=== PATIENT | male | born 1930 | race Caucasian/White ===

== ENCOUNTER 2019-04-03 16:12 | Inpatient (IN) | payer MEDICARE ==
--- NOTE | 2019-04-03 16:44 | ED ---
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 He states that he feels fine and does not know why he is here. In the room, pt was A&Ox2 (person, place). Pt is a level 5 caveat secondary to dementia. - History Of Current Complaint Chief Complaint: EDPsychosocial Time Seen by Provider: 04/03/19 16:16 Hx Obtained From: Patient, Medical Records, Other: - nursing staff Hx From Patient Unobtainable Due To: Dementia - Level 5 Caveat - Allergies/Home Medications Allergies/Adverse Reactions: Allergies Allergy/AdvReac Type Severity Reaction Status Date / Time No Known Allergies Allergy Verified 03/12/16 08:48 Home Medications: Home Medications Aspirin EC TAB* [Ecotrin EC Low Dose 81 MG*] 81 mg PO DAILY 04/03/19 [History Confirmed 04/03/19] PMH/Surg Hx/FS Hx/Imm Hx Endocrine/Hematology History: Reports: Hx Anticoagulant Therapy - plavix, Hx Diabetes Denies: Hx Blood Disorders, Hx Anemia Cardiovascular History: Reports: Hx Coronary Artery Disease Sensory History: Reports: Hx Contacts or Glasses Denies: Hx Hearing Problem Opthamlomology History: Reports: Hx Contacts or Glasses Neurological History: Reports: Hx Dementia - per transport staff - Surgical History Surgical History: Yes Surgery Procedure, Year, and Place: BYPASS X 4, RIGHT KNEE, CERVICAL FUSION Infectious Disease History: No Infectious Disease History: Denies: Traveled Outside the [place] in Last 30 Days - Family History Known Family History: Positive: Unknown - Pt is a level 5 caveat secondary to dementia - Social History Alcohol Use: None Hx Substance Use: No Substance Use Type: Reports: None Hx Tobacco Use: No Smoking Status (MU): Never Smoked Tobacco Review of Systems - ROS Summary Review of Systems Summary: Pt is a level 5 caveat secondary to dementia. Negative: Chest Pain All Other Systems Reviewed And Are Negative: No Physical Exam - Summary Physical Exam Summary: Appearance: The patient is well-nourished in no acute distress and in no acute pain. Skin: The skin is warm and dry, and skin color reflects adequate perfusion. HEENT: The head is normocephalic and atraumatic. The pupils are equal and reactive. The conjunctivae are clear and without drainage. Nares are patent and without drainage. Mouth reveals moist mucous membranes, and the throat is without erythema and exudate. The external ears are intact. The ear canals are patent and without drainage. The tympanic membranes are intact. Neck: The neck is supple with full range of motion and non-tender. There are no carotid bruits. There is no neck vein distension. Respiratory: Chest is non-tender. Lungs are clear to auscultation and breath sounds are symmetrical and equal. Cardiovascular: Heart is regular rate and rhythm. There is no murmur or rub auscultated. There is no peripheral edema and pulses are symmetrical and equal. Abdomen: The abdomen is soft and non-tender. There are normal bowel sounds heard in all four quadrants and there is no organomegaly palpated. Musculoskeletal: There is no back tenderness noted. Extremities are non-tender with full range of motion. There is good capillary refill. There is no peripheral edema or calf tenderness elicited. Neurological: Patient is alert and oriented to person and place. The patient has symmetrical motor strength in all four extremities. Cranial nerves are grossly intact. Deep tendon reflexes are symmetrical and equal in all four extremities. Psychiatric: The patient has an appropriate affect and does not exhibit any anxiety or depression. Triage Information Reviewed: Yes Vital Signs On Initial Exam: Initial Vitals Temp Pulse Resp BP Pulse Ox 98.6 F 64 14 147/77 100 04/03/19 16:20 04/03/19 16:20 04/03/19 16:20 04/03/19 16:20 04/03/19 16:20 Vital Signs Reviewed: Yes Completion Of Physical Exam Limited Due To: Dementia, Level 5 Procedures - Sedation Patient Received Moderate/Deep Sedation with Procedure: No Diagnostics - Vital Signs Vital Signs Temp Pulse Resp BP Pulse Ox 04/03/19 16:20 98.6 F 64 14 147/77 100 - Laboratory Result Diagrams: 04/03/19 16:56 04/03/19 16:56 Lab Statement: Any lab studies that have been ordered have been reviewed, and results considered in the medical decision making process. - Radiology cxr Radiology Interpretation Completed By: Radiologist Summary of Radiographic Findings: IMPRESSION: RIGHT APICAL PLEURAL THICKENING NEW FROM APRIL 13, 2015. RECOMMEND. CONSIDERATION OF FURTHER EVALUATION WITH CT OF THE CHEST IN THE NONACUTE SETTING. This report was reviewed by the ED physician. CXR Radiology Interpretation Completed By: Radiologist Summary of Radiographic Findings: IMPRESSION: RIGHT APICAL PLEURAL THICKENING NEW FROM APRIL 13, 2015. RECOMMEND. CONSIDERATION OF FURTHER EVALUATION WITH CT OF THE CHEST IN THE NONACUTE SETTING. This report was reviewed by the ED physician. - EKG 1702 Cardiac Rate: NL - 62bpm EKG Rhythm: Sinus Rhythm Summary of EKG Findings: Normal sinus rhythm at 62 bpm, normal ST, no ectopy, no STEMI. LBBB. This EKG was reviewed and interpreted by the ED physician. Complex Multi-Symp Course/Dx Course Of Treatment: Mr. Zurita has severe dementia and is unable to take care of himself. - Diagnoses Provider Diagnoses: Dementia - Physician Notifications Discussed Care Of Patient With: hospitalist services Time Discussed With Above Provider: 20:00 Instructed by Provider To: Other - Hospitalist services accepts the patient for admission. Discharge ED - Sign-Out/Discharge Documenting (check all that apply): Patient Departure - admit - Discharge Plan Condition: Stable Disposition: ADMITTED TO [facility] Referrals: Sriram Baer MD [Primary Care Provider] - - Billing Disposition and Condition Condition: STABLE Disposition: Admitted to [facility] - Attestation Statements Document Initiated by Twila: Yes Documenting Scribe: Lisa Chavez Provider For Whom Twila is Documenting (Include Credential): Dr. Ethan Singh MD Scribe Attestation: Lisa Gilliland scribed for Dr. Ethan Singh MD on 04/03/19 at 2056. Scribe Documentation Reviewed: Yes Provider Attestation: The documentation as recorded by the Lisa selby accurately reflects the service I personally performed and the decisions made by me, Dr. Ethan Singh MD Status of Scribe Document: Viewed
[2019-04-03 17:03] LABS: ABS Lymphocytes 0.5 10^3/ul (1.0-4.8); ABS Monocytes 0.3 10^3/ul (0-0.8); ABS Neutrophils 4.8 10^3/ul (1.5-7.7); Eosinophil % 0.4 %; Hematocrit 33 % (42-52); Hemoglobin 10.8 g/dL (14.0-18.0); Lymphocyte % 9.6 %; Mean Corpuscular HGB Conc 33 g/dL (31-36); Mean Corpuscular Hemoglobin 32 pg (27-31); Mean Corpuscular Volume 95 fL (80-94); Mean Platelet Volume 6.8 fL (7.4-10.4); Platelet Count 186 10^3/uL (150-450); Red Blood Count 3.43 10^6 /uL (4.18-5.48); Red Cell Distribution Width 14 % (10-15); White Blood Count 5.7 10^3/uL (3.5-10.8)
[2019-04-03 17:19] LABS: INR 1.04 (0.82-1.09)
[2019-04-03 17:21] LABS: ALT 9 U/L (7-52); AST 9 U/L (13-39); Albumin/Globulin Ratio 1.8 (1-3); Alkaline Phosphatase 85 U/L (34-104); BUN/Creatinine Ratio 24.7 (8-20); Blood Urea Nitrogen 48 mg/dL (6-24); C Reactive Protein < 1.00 mg/L (<8.01); CO2 Carbon Dioxide 29 mmol/L (22-32); Calcium 9.3 mg/dL (8.6-10.3); Chloride 101 mmol/L (101-111); EGFR African American 39.7 (>60); EGFR Non-African American 32.8 (>60); Globulin 2.2 g/dL (2-4); Glucose 234 mg/dL (70-100); Sodium 134 mmol/L (135-145); Total Protein 6.2 g/dL (6.4-8.9)
[2019-04-03 17:25] LABS: Anion Gap 4 mmol/L (2-11); Potassium 5.2 mmol/L (3.5-5.0)
--- OUTSIDE RECORDS SUMMARY | 2019-04-03 17:30 | XMS REPORT | Continuity of Care Document ---
:1930 External Reference #:[id number] Author Name Jaky Velazquez PA (transmitted by agent of provider Irwin Ernst) Address [address] [place] [address], [facility] [address] [place] [address] Care Team Providers Name Role Phone HCP given Care Team Information [place] Pilot Unavailable Casey Chambers MD - Orthopaedic Care Team Information [place] [phone] Surgery [place] [facility] - Geriatric Care Team Information [place] Medicine Problems Active Problems Provider Date Type 2 diabetes mellitus Sriram Baer M.D. Onset: 11/12/2009 Benign essential hypertension Sriram Baer M.D. Onset: 11/12/2009 Pure hypercholesterolemia Sriram Baer M.D. Onset: 11/12/2009 Coronary arteriosclerosis Sriram Baer M.D. Onset: 11/12/2009 Chronic renal failure Sriram Baer M.D. Onset: 11/12/2009 Gout Sriram Baer M.D. Onset: 11/12/2009 Carotid artery occlusion Sriram Baer M.D. Onset: 07/30/2010 Chronic kidney disease stage 3 Sriram Baer M.D. Onset: 07/31/2015 Alzheimer's disease Sriram Baer M.D. Onset: 12/02/2016 Social History Type Date Description Comments Sex Unknown Tobacco Use Reviewed: 01/17/14 Never Smoked Cigarettes Smoking Status Reviewed: 01/17/14 Never Smoked Cigarettes ETOH Use Denies alcohol use Allergies, Adverse Reactions, Alerts Description No Known Drug Allergies Medications Active Medications SIG Qnty Indications Ordering Date Provider Visiting Nursing medication G30.9 Irwin Ernst, 03/31/2019 Services management D.O. assistance Aspirin 1 by mouth every Unknown 07/23/[address] Brown HCL Take One Tablet By 180tabs F03.90 Sriram Baer, 2015 10mg Mouth Twice A Day M.D. Tablets For Memory G30.9 Glipizide ER Take One Tablet By 90tabs E11.21 Sriram Baer, 04/23/2015 2.5mg Tablets Mouth Every M.D. ER 24HR Morning For Blood Sugar Control Atorvastatin Calcium Take One Tablet By 90tabs E78.0 Sriram Baer, 40mg Mouth Every Day M.D. Tablets Clopidogrel Bisulfate Take One Tablet By 90tabs I25.10 Sriram Baer, 75mg Mouth Every Day M.D. Tablets H34.10 Allopurinol take 1 tablet by 90tabs M10.9 Sriram Baer, 09/09/2008 300mg Tablets mouth once daily to M.D. prevent gout attacks Medications Administered in Office Medication SIG Qnty Indications Ordering Provider Date injection, kenalog, 10 mg Sriram Baer M.D. 07/23/2009 Injection Immunizations CPT Code Status Date Vaccine Lot # [id number] Given 02/10/2019 Influenza Vaccine, Inactivated, Subunit, [id number] Adjuvanted, For Intrmus 59595 Given 01/10/2018 Influenza Vaccine, Inactivated, Subunit, [id number] Adjuvanted, For Intrmus 18880 Given 12/02/2016 Influenza Virus Vaccine, Quadrivalent, Split, [id number] Preservative Free 62136 Given 12/04/2015 Influenza Vaccine Split Virus Preservative Free Im [id number] Use (hi-dose) 94954 Given 12/31/2014 Prevnar 13 [id number] 91660 Given 12/31/2014 Influenza Vaccine Split Virus Preservative Free Im [id number] Use (hi-dose) 31529 Given 02/10/2012 Flu, Split Virus 3Yrs 42215 Given 12/31/2008 Flu, Split Virus 3Yrs 26561 Refused 01/10/2018 Shingrix Zoster (Shingles) Vaccine (HZV) Recomb,Subnit,Adjuvanted 61658 Refused 01/10/2018 Shingrix Zoster (Shingles) Vaccine (HZV) Recomb,Subnit,Adjuvanted 16285 Refused 07/24/2016 Adacel or Boostrix, TDaP 78932 Refused 12/25/2008 Zostavax Vital Signs Date Vital Result Comment 02/10/2019 1:24pm BP Systolic 114 mmHg BP Diastolic 60 mmHg Height 68 inches 5'8" Weight 143.00 lb BMI (Body Mass Index) 21.7 kg/m2 01/24/2019 11:56am BP Systolic 118 mmHg BP Diastolic 66 mmHg Weight 145.00 lb Results Test Acquired Date Facility Test Result H/L Range Note BMP W/Egfr 03/30/2019 [facility] Sodium 136 mmol/L Normal 135-145 [phone] Chloride 102 mmol/L Normal 101-111 Co2 Carbon Dioxide 29 mmol/L Normal 22-32 Glucose 193 mg/dL High 70-100 Blood Urea Nitrogen 47 mg/dL High 6-24 Creatinine 1.66 mg/dL High 0.67-1.17 BUN/Creatinine Ratio 28.3 High 8-20 Calcium 9.5 mg/dL Normal 8.6-10.3 Egfr Non- 39.3 >60 Egfr 47.5 >60 1 Potassium 5.4 mmol/L High 3.5-5.0 Anion Gap 5 mmol/L Normal 2-11 Urine Microalbumin 02/10/2019 [facility] Ur Microalbumin 61.9 mg/L Random [phone] (mg/L) Urine Creatinine 93.32 mg/dL Urine Microalbumin/Creatinine 66.3 High <31 CBC Auto Diff 02/10/2019 [facility] White Blood 5.8 10^3/uL Normal 3.5-10.8 [phone] Count Red Blood Count 3.39 10^6/uL Low 4.18-5.48 Hemoglobin 11.0 g/dL Low 14.0-18.0 Hematocrit 33 % Low 42-52 Mean Corpuscular Volume 97 fL High 80-94 Mean Corpuscular Hemoglobin 32 pg High 27-31 Mean Corpuscular HGB Conc 33 g/dL Normal 31-36 Red Cell Distribution Width 15 % Normal 10-15 Platelet Count 201 10^3/uL Normal 150-450 Mean Platelet Volume 8.0 fL Normal 7.4-10.4 Abs Neutrophils 4.3 10^3/uL Normal 1.5-7.7 Abs Lymphocytes 1.0 10^3/uL Normal 1.0-4.8 Abs Monocytes 0.4 10^3/uL Normal 0-0.8 Abs Eosinophils 0.1 10^3/uL Normal 0-0.6 Abs Basophils 0.1 10^3/uL Normal 0-0.2 Abs Nucleated RBC 0.0 10^3/uL Granulocyte % 73.3 % Lymphocyte % 17.2 % Monocyte % 6.9 % Eosinophil % 1.7 % Basophil % 0.9 % Nucleated Red Blood Cells % 0.0 Comp Metabolic Panel 02/10/2019 [facility] Sodium 142 mmol/L Normal 135-145 [phone] Chloride 106 mmol/L Normal 101-111 Co2 Carbon Dioxide 29 mmol/L Normal 22-32 Glucose 123 mg/dL High 70-100 Blood Urea Nitrogen 44 mg/dL High 6-24 Creatinine 1.69 mg/dL High 0.67-1.17 BUN/Creatinine Ratio 26.0 High 8-20 Calcium 10.0 mg/dL Normal 8.6-10.3 Total Protein 6.8 g/dL Normal 6.4-8.9 Albumin 4.4 g/dL Normal 3.2-5.2 Globulin 2.4 g/dL Normal 2-4 Albumin/Globulin Ratio 1.8 Normal 1-3 Total Bilirubin 0.60 mg/dL Normal 0.2-1.0 Alkaline Phosphatase 96 U/L Normal 34-104 Alt 12 U/L Normal 7-52 Ast 13 U/L Normal 13-39 Egfr Non- 38.5 >60 Egfr 46.6 >60 2 Potassium 5.5 mmol/L High 3.5-5.0 Anion Gap 7 mmol/L Normal 2-11 Laboratory test 02/10/2019 [facility] TSH (Thyroid 4.86 mcIU/mL Normal 0.34-5.60 finding [phone] Stim Horm) Urine Micro 02/10/2019 In House Ua WBC TNTC 3 Inhouse Ua RBC 3-5 Ua Epi 0-2 Ua Other many WBC clumps Ua Specific [place] 1.010 Ua Blood +2 Ua PH 6.5 Ua Protein +1 Ua Leukocytes +2 Laboratory test finding 01/24/2019 In House Hemoglobin A1c 5.8 1 Because ethnic data is not always readily available, this report includes an eGFR for both -Americans and non- Americans. The National Kidney Disease Education Program (NKDEP) does not endorse the use of the MDRD equation for patients that are not between the ages of 18 and 70, are , have extremes of body size, muscle mass, or nutritional status, or are non- or non-. According to the National Kidney Foundation, irrespective of diagnosis, the stage of the disease is based on the level of kidney function: Stage Description GFR(mL/min/1.73 m(2)) 1 Kidney damage with normal or decreased GFR 90 2 Kidney damage with mild decrease in GFR 60-89 3 Moderate decrease in GFR 30-59 4 Severe decrease in GFR 15-29 5 Kidney failure <15 (or dialysis) 2 Because ethnic data is not always readily available, this report includes an eGFR for both -Americans and non- Americans. The National Kidney Disease Education Program (NKDEP) does not endorse the use of the MDRD equation for patients that are not between the ages of 18 and 70, are , have extremes of body size, muscle mass, or nutritional status, or are non- or non-. According to the National Kidney Foundation, irrespective of diagnosis, the stage of the disease is based on the level of kidney function: Stage Description GFR(mL/min/1.73 m(2)) 1 Kidney damage with normal or decreased GFR 90 2 Kidney damage with mild decrease in GFR 60-89 3 Moderate decrease in GFR 30-59 4 Severe decrease in GFR 15-29 5 Kidney failure <15 (or dialysis) 3 Dr. 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 02/10/2019 G30.9 Alzheimer's disease, unspecified Sriram Baer M.D. 02/10/2019 N18.3 Chronic kidney disease, stage 3 (moderate) Sriram Baer M.D. 02/10/2019 R29.6 Repeated falls Sriram Baer M.D. 02/10/2019 I25.10 Atherosclerotic heart disease of [place] Sriram Baer M.D. coronary artery without angina pectoris 02/10/2019 I65.23 Occlusion and stenosis of bilateral carotid Sriram Baer M.D. arteries 02/10/2019 R63.4 Abnormal weight loss Sriram Baer M.D. 02/10/2019 Z23 Encounter for immunization Sriram Baer M.D. 02/10/2019 Z68.21 Body mass index (BMI) 21.0-21.9, adult Sriram Baer M.D. 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 at Main Legmdx3802/10/2019 - Sriram Baer M.D.E11.21 Type 2 diabetes mellitus with diabetic nephropathyFollow up:RTO 6 months w/ A1c For the small sore on your left 3rd toe, try covering it with efvpfjraL71 Essential (primary) tacukvuvyjppW81.9 Alzheimer's disease, unspecifiedComments:See triage to [employer] Test [employer] (requesting assistance w/ prison placement). I agree that pt is not safe in his home by himself and that consideration should be made for prison placement. Pt is opposed but frankly I do not think he is competent to make such a decision.N18.3 Chronic kidney disease, stage 3 ( moderate)R29.6 Repeated srzitG69.10 Atherosclerotic heart disease of [place] coronary artery without angina fndcdetmM06.23 Occlusion and stenosis of bilateral carotid bpwnncfaY30.4 Abnormal weight lossZ23 Encounter for immunizationComments:Encouraged flu vaccine wc was accepted in the end. VIS provided.Z68.21 Body mass index (BMI) 21.0-21.9, adult Functional Status Description No Information Available Mental Status Description No Information Available Referrals Description No Information Available
--- OUTSIDE RECORDS SUMMARY | 2019-04-03 17:30 | XMS REPORT | Continuity of Care Document ---
:1930 External Reference #:[id number] Author Name Sriram Baer M.D. Address [address] [facility] [address] [place] [address] Care Team Providers Name Role Phone HCP given Care Team Information Public Transportation Inspector Unavailable Casey Chambers MD - Orthopaedic Care Team Information Public Transportation Inspector Surgery [place] [facility] - Geriatric Care Team Information Public Transportation Inspector Medicine Problems Active Problems Provider Date Type [...] Medications Active Medications SIG Qnty Indications Ordering Provider Date Aspirin 1 by mouth every Unknown 07/23/[address] day Memantine HCL Take 1 Tablet By 180tabs F03.90 Sriram Baer, 03/06/2016 10mg Mouth Twice A M.D. Tablets Day For Memory G30.9 Glipizide ER take 1 tablet by 90tabs E11.21 Sriram Baer, 04/23/2015 2.5mg Tablets mouth every M.D. ER 24HR morning for blood sugar control Atorvastatin Calcium take 1 tablet by 90tabs E78.0 Sriram Baer, 2014 40mg mouth once daily M.D. Tablets Clopidogrel Bisulfate take 1 tablet by 90tabs I25.10 Sriram Baer, 03/2011 75mg mouth once daily M.D. Tablets H34.10 Allopurinol take 1 tablet by 90tabs M10.9 Sriram Baer, 09/09/2008 300mg Tablets mouth once daily to M.D. prevent gout attacks Medications Administered in Office Medication SIG Qnty Indications Ordering Provider Date injection, kenalog, 10 mg Sriram Baer M.D. 07/23/2009 Injection Immunizations CPT Code Status Date Vaccine Lot # [id number] Given 02/10/2019 Influenza Vaccine, Inactivated, Subunit, [id number] Adjuvanted, For Intrmus 58873 Given 01/10/2018 Influenza Vaccine, Inactivated, Subunit, [id number] Adjuvanted, For [facility] 35716 Given 12/02/2016 Influenza Virus Vaccine, Quadrivalent, Split, [id number] Preservative Free 94937 Given 12/04/2015 Influenza Vaccine Split Virus Preservative Free Im [id number] Use 77062 Given 12/31/2014 Prevnar 13 [id number] 19025 Given 12/31/2014 Influenza Vaccine Split Virus Preservative Free Im [id number] Use 93655 Given 02/10/2012 Flu, Split Virus 3Yrs 54795 Given 12/31/2008 Flu, Split Virus 3Yrs 28817 Refused 01/10/2018 Shingrix Zoster (Shingles) Vaccine (HZV) Recomb,Subnit,Adjuvanted 78814 Refused 01/10/2018 Shingrix Zoster (Shingles) Vaccine (HZV) Recomb,Subnit,Adjuvanted 95573 Refused 07/24/2016 Adacel or Boostrix, TDaP 64239 Refused 12/25/2008 Zostavax Vital Signs Date Vital Result Comment 02/10/2019 1:24pm BP Systolic 114 mmHg BP Diastolic 60 mmHg Height 68 inches 5'8" Weight 143.00 lb BMI (Body Mass Index) 21.7 kg/m2 01/24/2019 11:56am BP Systolic 118 mmHg BP Diastolic 66 mmHg Weight 145.00 lb Results Test Acquired Date Facility Test Result H/L Range Note CBC Auto 02/10/2019 [facility] White Blood 5.8 10^3/uL Normal 3.5- 10.8 Diff [phone] Count Red Blood Count 3.39 10^6/uL Low [...] % Nucleated Red Blood Cells % 0.0 Laboratory test 02/10/2019 [facility] TSH (Thyroid Stim <pending> finding [phone] [facility]) Laboratory test 01/24/2019 In House Hemoglobin A1c 5.8 finding Procedures Date Code Description Status 02/10/2019 [id number] Diabetic Foot Exam Completed 08/19/2017 [id number] Diabetic Retinal Eye Exam Completed Medical Devices Description No Information Available Encounters Type Date Location Provider Dx Diagnosis Office Visit 02/10/2019 Main Office Sriram Baer, 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 02/10/2019 I25.10 Atherosclerotic heart disease of [place] Sriram Baer M.D. coronary artery without angina [...] am - Sriram Baer M.D. at Main Vodxcj3908/05/2017 - Jaky Velazquez, PAR29.6 Repeated fallsComments:Had a long discussion with patient about fall safety and the importance of fall prevention. I strongly encouraged him to use a walker when ambulating to prevent falls, and to consider getting Life Alert (or similar). Pt was very resistant to both ideas, didn't feel he needed them despite frequent falls and living alone. He thinks he already has a walker in storage--told me he would get it out and "try it". Pt has f/u appt scheduled w Dr. Baer on 09/01. Functional Status Description No Information Available Mental Status Description No Information Available Referrals Description No Information Available
[2019-04-03] MEDS ORDERED: Acetaminophen TAB* 325 MG PO PRN (20:04)
[2019-04-03] MEDS: Heparin VIAL(*) 5000 UNITS/ML VIAL (FIVE THOUSAND) SUBCUT SCH (23:12)
[2019-04-03] MEDS: Memantine TAB* 10 MG PO SCH (23:12)
--- NOTE | 2019-04-03 23:22 | HP ---
CC: Dr. Baer * HISTORY AND PHYSICAL: DATE OF ADMISSION: 04/03/19 PROVIDER: Maggie Powell NP PRIMARY CARE PROVIDER: Dr. Baer. ATTENDING PHYSICIAN WHILE IN THE HOSPITAL: Dr. Claudia Wang * (dictated by Maggie Powell NP). CHIEF COMPLAINT: Confusion. HISTORY OF PRESENT ILLNESS: History of present illness was obtained from his family day care provider as the patient does have underlying dementia with moderate confusion. Per Doug, his family day care provider, the patient has been more confused and not taking his meds at home. He has not been eating. The patient's friend who has been caring for the patient for the past 20 years at [facility] has recently been diagnosed with metastatic cancer and placed in the hospice residence. Prior to that, she was his healthcare proxy and took care of all of his financial requirements as well as making meals and caring for him during the day. Since her admission to the hospital and then to hospice residence, the patient has had been more confused and not taking his meds at home. Other neighbors at [facility] have been assisting, but the patient has been noted to going into other apartments, and due to his increased confusion and not able to care for himself, he was brought to the emergency room for further evaluation and likely placement. While in the emergency room, the patient had routine lab work drawn. He was found to have BUN and creatinine of 48 and 1.94, which is close to his baseline since 2014. The patient has no other symptoms. He denies any fever, chills. Denies any chest pain or shortness of breath. No cough, congestion, or hemoptysis. He denies any nausea, vomiting, diarrhea, or abdominal pain. He denies any difficulty hearing, pain with urination. He denies any weakness, difficulty swallowing. Due to the patient's increased confusion and inability to care for self, Hospital Medicine was asked to see and evaluate him for admission. PAST MEDICAL HISTORY: Past medical history was obtained from his outpatient case manager and old records. The patient has a history of: 1. Type 2 diabetes. 2. Hypertension. 3. Hyperlipidemia. 4. Coronary artery disease. 5. Chronic renal disease. 6. Gout. 7. Carotid artery occlusion. 8. Alzheimer disease. 9. History of recurrent UTIs. 10. History of colon cancer in 1979. 11. History of gastric cancer in 1999. 12. History of a CVA. 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 PAST SURGICAL HISTORY: 1. Four-vessel CABG. 2. Bowel resection. MEDICATIONS: Home medications were obtained from his family day care provider: 1. Allopurinol 300 mg p.o. daily. 2. Aspirin 81 mg p.o. daily. 3. Atorvastatin 40 mg p.o. daily. 4. Clopidogrel 75 mg p.o. daily. 5. Glipizide ER 2.5 mg p.o. daily. 6. Memantine HCl 10 mg p.o. b.i.d. ALLERGIES: No known drug allergies. FAMILY HISTORY: Family history was obtained from old records as the patient reports no family history. Father with diabetes. Brother with diabetes. No other reported history in the medical records. SOCIAL HISTORY: The patient denies any tobacco, alcohol, or illicit drug use. He is . He lives at [facility]. He is a full code per the patient. He is a retired superintendent mechanical. REVIEW OF SYSTEMS: A 14-point review of systems was completed. All pertinent positives are as mentioned in the HPI. PHYSICAL EXAMINATION GENERAL: At this time, Mr. Zurita is an 88-year-old male. He is alert. He is oriented to self. He is confused to situation and time. VITAL SIGNS: Blood pressure 132/70, heart rate 62, respirations 18, O2 saturation 100%, temperature was 98.6. HEENT: Head is atraumatic, normocephalic. Eyes: EOMs are intact. Sclerae are anicteric and not pale. Oral mucosa is moist. NECK: Supple. LUNGS: Clear to auscultation bilaterally. No wheezes, rales, or rhonchi. CARDIAC: S1 and S2. Regular rate and rhythm. No rubs or gallops. ABDOMEN: Soft and nontender. Bowel sounds are present x4. EXTREMITIES: He is able to move all 4 extremities. There is no clubbing or cyanosis. Pedal pulses are +2 bilaterally. NEUROLOGIC: He is awake, alert, and oriented to self, confused to time and situation. He has no gross focal deficits. His speech is clear. SKIN: Intact. DIAGNOSTIC STUDIES/LAB DATA: WBCs are 5.7, RBCs 3.43, hemoglobin 10.8, hematocrit 33, platelet count 186. INR 1.04. Sodium 134, potassium 5.2, chloride 101, carbon dioxide was 29, anion gap is 4, BUN 48, creatinine 1.94, glucose was 234, calcium 9.3. ASTs were 9, ALTs were 9, alkaline phosphatase was 85. C-reactive protein was less than 1. BNP was 118. Urine is currently pending. He had a chest x-ray, radiologist's impression: Right apical pleural thickening , new from March 2015. Recommend further evaluation with CT of the chest in a nonacute setting. He had an electrocardiogram which shows sinus rhythm at a rate of 62. He does have T-wave inversions in V5, V6, and left bundle-branch block, which is seen on prior EKGs. ASSESSMENT AND PLAN: Mr. Zurita is an 88-year-old male with a past medical history significant for coronary artery disease, hypertension, hyperlipidemia, type 2 diabetes, chronic kidney disease, gout, carotid artery occlusion, and Alzheimer disease who presented to the emergency room with confusion and inability to care for self at home. He will be admitted under observation for: 1. Confusion. I suspect his underlying confusion is related to his underlying Alzheimer's. He could have an underlying urinary tract infection, though the patient does deny any urinary frequency, urgency, or pain with urination. Urine is currently pending. I suspect his underlying confusion at this time is related to progression of his Alzheimer disease. I will get Social Work involved as the patient will likely need fci placement at discharge. 2. Coronary artery disease. The patient should continue on clopidogrel, atorvastatin, and aspirin as previously prescribed. 3. Type 2 diabetes. We will continue on glipizide 2.5 mg p.o. every day. 4. Underlying Alzheimer's. We will continue memantine 10 mg twice daily. 5. History of gout. The patient will continue on allopurinol 300 mg p.o. daily. 6. FEN. He can have a regular diet. 7. Code status. He is a full code. 8. DVT prophylaxis. I will place him on heparin subcu. TIME SPENT: Time spent on this admission was 60 minutes, greater than half that time was spent at the bedside reviewing the events leading thus far to his hospitalization, performing physical exam, and reviewing my plan of care. I have discussed this with my attending, Dr. Claudia Wang; she is in agreement with my plan. MAGGIE POWELL, BELL ATTENDANT [id number]/[facility] #: [id number] FOUR WINDS PSYCHIATRIC HOSPITALFransisco
[2019-04-04 00:32] LABS: Urine Appearance Clear; Urine Bilirubin Negative (Negative); Urine Blood 1+ (Negative); Urine Color Yellow; Urine Glucose 2+(150 mg/dL) (Negative); Urine Ketones Negative (Negative); Urine Nitrite Negative (Negative); Urine Protein Negative (Negative); Urine Specific Gravity 1.015 (1.010-1.030); Urine Urobilinogen Negative (Negative)
[2019-04-04 00:46] LABS: Urine Bacteria 1+ (Absent); Urine Red Blood Cell Trace(0-2/hpf) (Absent); Urine Squamous Epithelial Cell Present (Absent); Urine White Blood Cell Trace(0-5/hpf) (Absent)
[2019-04-04 07:29] LABS: ABS Eosinophils 0.1 10^3/ul (0-0.6); ABS Monocytes 0.4 10^3/ul (0-0.8); Eosinophil % 1.1 %; Hematocrit 31 % (42-52); Lymphocyte % 17.9 %; Mean Corpuscular HGB Conc 35 g/dL (31-36); Mean Corpuscular Hemoglobin 33 pg (27-31); Mean Corpuscular Volume 95 fL (80-94); Mean Platelet Volume 7.3 fL (7.4-10.4); Platelet Count 197 10^3/uL (150-450); Red Blood Count 3.29 10^6 /uL (4.18-5.48); Red Cell Distribution Width 14 % (10-15); White Blood Count 5.5 10^3/uL (3.5-10.8)
[2019-04-04] MEDS: Heparin VIAL(*) 5000 UNITS/ML VIAL (FIVE THOUSAND) SUBCUT SCH ×3 (07:37→22:01)
[2019-04-04] MEDS: Memantine TAB* 10 MG PO SCH ×2 (07:37→22:00)
[2019-04-04] MEDS: Allopurinol TAB* 300 MG PO SCH (07:38)
[2019-04-04] MEDS: Aspirin EC TAB* 81 MG TAB.EC PO SCH (07:38)
[2019-04-04] MEDS: glipiZIDE TAB.XL* 2.5 MG PO SCH (07:38)
[2019-04-04] MEDS: Atorvastatin* 40 MG TAB PO SCH (07:38)
[2019-04-04] MEDS: Clopidogrel TAB* 75 MG PO SCH (07:38)
[2019-04-04 07:40] LABS: BUN/Creatinine Ratio 25.4 (8-20); Calcium 9.1 mg/dL (8.6-10.3); EGFR African American 45.3 (>60); EGFR Non-African American 37.5 (>60); Potassium 4.5 mmol/L (3.5-5.0)
--- NOTE | 2019-04-04 10:20 | PN ---
Subjective Date of Service: 04/04/19 Interval History: Mr. Zurita is feeling fine this morning. He offers no complaints. Finishing breakfast on my exam. He knows he is in the hospital, but is not sure why. Denies CP, SOB, N/V. Good appetite. No concerns from nursing. Family History: Unchanged from Admission Social History: Unchanged from Admission Past Medical History: Unchanged from Admission Objective Active Medications: Acetaminophen (Tylenol Tab*) 650 mg PO Q4H PRN MILD PAIN or TEMP > 100.4 Allopurinol (Zyloprim Tab*) 300 mg PO DAILY [facility] Aspirin (Aspirin Ec Tab*) 81 mg PO DAILY [facility] Atorvastatin Calcium (Lipitor*) 40 mg PO DAILY [facility] Clopidogrel Bisulfate (Plavix Tab*) 75 mg PO DAILY [facility] Glipizide (Glucotrol Xl*) 2.5 mg PO QAM [facility] Heparin Sodium (Porcine) (Heparin Vial(*)) 5,000 units SUBCUT Q8HR [facility] Memantine (Namenda Tab*) 10 mg PO BID [facility] Vital Signs - 8 hr 04/04/19 04/04/19 03:10 07:32 Temperature 98.0 F 98.4 F Pulse Rate 64 81 Respiratory 19 16 Rate Blood Pressure 120/66 105/50 (mmHg) O2 Sat by Pulse 100 98 Oximetry Oxygen Devices in Use Now: None Appearance: Elderly male sitting in bed in NAD Ears/Nose/Mouth/Throat: Mucous Membranes Moist Neck: NL Appearance and Movements; NL JVP, Trachea Midline Respiratory: Symmetrical Chest Expansion and Respiratory Effort, Clear to Auscultation Cardiovascular: NL Sounds; No Murmurs; No JVD Extremities: No Edema Neurological: - - Oriented to self and place Nutrition: Taking PO's Result Diagrams: 04/04/19 07:06 04/04/19 07:06 Assess/Plan/Problems-Billing Assessment: Mr. Zurita is an 88 yo M with PMH of DM2, HTN, HLD, gout, CKD, CAD, Alzheimer' s, carotid artery occlusion, CVA, R eye blindness d/t emboli; who presented to the ED with increasing confusion, likely r/t advancing dementia. - Patient Problems (1) Alzheimer's dementia Code(s): G30.9 - ALZHEIMER'S DISEASE, UNSPECIFIED; F02.80 - DEMENTIA IN OTH DISEASES CLASSD ELSWHR W/O BEHAVRL DISTURB Comment: - Patient's primary caregiver recently hospitalized and now on hospice; timing coincides with decline in mental status, so suspect AMS on admission was d/t advancing dementia - Social Work consulting for placement - Continue Namenda (2) Diabetes mellitus Code(s): E11.9 - TYPE 2 DIABETES MELLITUS WITHOUT COMPLICATIONS Comment: - BG >200 - Continue glipizide; start Lantus (3) CAD (coronary artery disease) Code(s): I25.10 - ATHSCL HEART DISEASE OF [place] CORONARY ARTERY W/O ANG PCTRS Comment: - Continue aspirin, atovastatin, Plavix (4) History of gout Code(s): Z87.39 - PERSONAL HISTORY OF DISEASES OF THE [place] SYS AND [place]N [place] Comment: - Continue allopurinol (5) CKD (chronic kidney disease), stage III Code(s): N18.3 - CHRONIC KIDNEY DISEASE, STAGE 3 (MODERATE) Comment: - Creatinine at baseline (6) DVT prophylaxis Code(s): Z29.9 - ENCOUNTER FOR PROPHYLACTIC MEASURES, UNSPECIFIED Comment: - Heparin SQ (7) Full code status Code(s): Z78.9 - OTHER SPECIFIED HEALTH STATUS Comment: Status and Disposition: Retirement care pending placement. Attending: Joseph Moreno
[2019-04-04] MEDS: Insulin GLARGINE(*) 1 UNITS UNIT SUBCUT SCH (10:58)
[2019-04-05] MEDS: Heparin VIAL(*) 5000 UNITS/ML VIAL (FIVE THOUSAND) SUBCUT SCH ×3 (04:04→20:01)
[2019-04-05] MEDS: Allopurinol TAB* 300 MG PO SCH (08:01)
[2019-04-05] MEDS: Clopidogrel TAB* 75 MG PO SCH (08:01)
[2019-04-05] MEDS: Atorvastatin* 40 MG TAB PO SCH (08:01)
[2019-04-05] MEDS: Aspirin EC TAB* 81 MG TAB.EC PO SCH (08:01)
[2019-04-05] MEDS: Memantine TAB* 10 MG PO SCH ×2 (08:02→20:01)
[2019-04-05] MEDS: glipiZIDE TAB.XL* 2.5 MG PO SCH (08:03)
[2019-04-05] MEDS: Insulin GLARGINE(*) 1 UNITS UNIT SUBCUT SCH (11:04)
--- NOTE | 2019-04-05 13:54 | PN ---
Subjective Date of Service: 04/05/19 Interval History: Mr. Zurita is feeling well today. He offers no complaints. Seen sitting in bed watching TV. Denies SOB, N/V. Good appetite. No concerns from nursing. Family History: Unchanged from Admission Social History: Unchanged from Admission Past Medical History: Unchanged from Admission Objective Active Medications: Acetaminophen (Tylenol Tab*) 650 mg PO Q4H PRN MILD PAIN or TEMP > 100.4 Allopurinol (Zyloprim Tab*) 300 mg PO DAILY [facility] Aspirin (Aspirin Ec Tab*) 81 mg PO DAILY [facility] Atorvastatin Calcium (Lipitor*) 40 mg PO DAILY [facility] Clopidogrel Bisulfate (Plavix Tab*) 75 mg PO DAILY [facility] Glipizide (Glucotrol Xl*) 2.5 mg PO QAM [facility] Heparin Sodium (Porcine) (Heparin Vial(*)) 5,000 units SUBCUT Q8HR [facility] Insulin Glargine (Lantus(*)) 5 units SUBCUT Q24H [facility] Memantine (Namenda Tab*) 10 mg PO BID [facility] Vital Signs - 8 hr 04/05/19 04/05/19 04/05/19 07:27 08:00 11:10 Temperature 97.6 F 97.4 F Pulse Rate 76 72 Respiratory 16 16 16 Rate Blood Pressure 108/57 122/52 (mmHg) O2 Sat by Pulse 96 100 Oximetry Oxygen Devices in Use Now: None Appearance: Elderly male sitting in bed in NAD Ears/Nose/Mouth/Throat: Mucous Membranes Moist Neck: NL Appearance and Movements; NL JVP, Trachea Midline Respiratory: Symmetrical Chest Expansion and Respiratory Effort, Clear to Auscultation Cardiovascular: NL Sounds; No Murmurs; No JVD, RRR Abdominal: NL Sounds; No Tenderness; No Distention Extremities: No Edema Neurological: - - Oriented to self and place Nutrition: Taking PO's Result Diagrams: 04/04/19 07:06 04/04/19 07:06 Assess/Plan/Problems-Billing Assessment: Mr. Zurita is an 88 yo M with PMH of DM2, HTN, HLD, gout, CKD, CAD, Alzheimer' s, carotid artery occlusion, CVA, R eye blindness d/t emboli; who presented to the ED with increasing confusion, likely r/t advancing dementia. - Patient Problems (1) Alzheimer's dementia Code(s): G30.9 - ALZHEIMER'S DISEASE, UNSPECIFIED; F02.80 - DEMENTIA IN OTH DISEASES CLASSD ELSWHR W/O BEHAVRL DISTURB Comment: - Patient's primary caregiver recently hospitalized and now on hospice; timing coincides with decline in mental status, so suspect AMS on admission was d/t advancing dementia - Social Work consulting for placement - Continue Namenda (2) Diabetes mellitus Code(s): E11.9 - TYPE 2 DIABETES MELLITUS WITHOUT COMPLICATIONS Comment: - BG >200 - Continue glipizide; increase Lantus (3) CAD (coronary artery disease) Code(s): I25.10 - ATHSCL HEART DISEASE OF [place] CORONARY ARTERY W/O ANG PCTRS Comment: - Continue aspirin, atovastatin, Plavix (4) History of gout Code(s): Z87.39 - PERSONAL HISTORY OF DISEASES OF THE MS SYS AND CONN TISS Comment: - Continue allopurinol (5) CKD (chronic kidney disease), stage III Code(s): N18.3 - CHRONIC KIDNEY DISEASE, STAGE 3 (MODERATE) Comment: - Creatinine at baseline (6) DVT prophylaxis Code(s): Z29.9 - ENCOUNTER FOR PROPHYLACTIC MEASURES, UNSPECIFIED Comment: - Heparin SQ (7) Full code status Code(s): Z78.9 - OTHER SPECIFIED HEALTH STATUS Comment: Status and Disposition: Inpatient pending placement. Attending: Arlet Riojas
[2019-04-06] MEDS: Heparin VIAL(*) 5000 UNITS/ML VIAL (FIVE THOUSAND) SUBCUT SCH ×3 (07:29→21:06)
[2019-04-06] MEDS: glipiZIDE TAB.XL* 2.5 MG PO SCH (08:36)
[2019-04-06] MEDS: Clopidogrel TAB* 75 MG PO SCH (08:36)
[2019-04-06] MEDS: Atorvastatin* 40 MG TAB PO SCH (08:36)
[2019-04-06] MEDS: Aspirin EC TAB* 81 MG TAB.EC PO SCH (08:36)
[2019-04-06] MEDS: Memantine TAB* 10 MG PO SCH ×2 (08:37→21:04)
[2019-04-06] MEDS: Allopurinol TAB* 300 MG PO SCH (08:37)
[2019-04-06] MEDS: Insulin GLARGINE(*) 1 UNITS UNIT SUBCUT SCH (10:46)
--- NOTE | 2019-04-06 13:43 | PN ---
Subjective Date of Service: 04/06/19 Interval History: Mr. Zurita is feeling fine today. He slept well overnight. Offers no complaints this morning. On exam this morning, he did not think he had eaten breakfast (he had). Denies CP, SOB, N/V. He has been up ambulating in the room. No concerns from nursing. Family History: Unchanged from Admission Social History: Unchanged from Admission Past Medical History: Unchanged from Admission Objective Active Medications: Acetaminophen (Tylenol Tab*) 650 mg PO Q4H PRN MILD PAIN or TEMP > 100.4 Allopurinol (Zyloprim Tab*) 300 mg PO DAILY [facility] Aspirin (Aspirin Ec Tab*) 81 mg PO DAILY [facility] Atorvastatin Calcium (Lipitor*) 40 mg PO DAILY [facility] Clopidogrel Bisulfate (Plavix Tab*) 75 mg PO DAILY [facility] Glipizide (Glucotrol Xl*) 2.5 mg PO QAM [facility] Heparin Sodium (Porcine) (Heparin Vial(*)) 5,000 units SUBCUT Q8HR [facility] Insulin Glargine (Lantus(*)) 11 units SUBCUT Q24H [facility] Memantine (Namenda Tab*) 10 mg PO BID [facility] Vital Signs - 8 hr 04/06/19 04/06/19 04/06/19 07:20 08:30 10:41 Temperature 97.9 F 97.3 F Pulse Rate 103 77 Respiratory 17 17 15 Rate Blood Pressure 145/90 109/52 (mmHg) O2 Sat by Pulse 100 100 Oximetry Oxygen Devices in Use Now: None Appearance: Elderly male lying in bed in NAD Ears/Nose/Mouth/Throat: Mucous Membranes Moist Neck: NL Appearance and Movements; NL JVP, Trachea Midline Respiratory: Symmetrical Chest Expansion and Respiratory Effort, Clear to Auscultation Cardiovascular: NL Sounds; No Murmurs; No JVD, RRR Abdominal: NL Sounds; No Tenderness; No Distention Extremities: No Edema Neurological: - - Oriented to self and place Lines/Tubes/Other Access: Clean, Dry and Intact Peripheral IV Nutrition: Taking PO's Result Diagrams: 04/04/19 07:06 04/04/19 07:06 Assess/Plan/Problems-Billing Assessment: Mr. Zurita is an 88 yo M with PMH of DM2, HTN, HLD, gout, CKD, CAD, Alzheimer' s, carotid artery occlusion, CVA, R eye blindness d/t emboli; who presented to the ED with increasing confusion, likely r/t advancing dementia. - Patient Problems (1) Alzheimer's dementia Code(s): G30.9 - ALZHEIMER'S DISEASE, UNSPECIFIED; F02.80 - DEMENTIA IN OTH DISEASES CLASSD ELSWHR W/O BEHAVRL DISTURB Comment: - Patient's primary caregiver recently hospitalized and now on hospice; timing coincides with decline in mental status, so suspect AMS on admission was d/t advancing dementia - Social Work consulting for placement - Continue Namenda (2) Asymptomatic bacteriuria Code(s): R82.71 - BACTERIURIA Comment: - Urine culture growing <100k colonies Staph epi - Asymptomatic and no s/s of infection - No indication for abx (3) Diabetes mellitus Code(s): E11.9 - TYPE 2 DIABETES MELLITUS WITHOUT COMPLICATIONS Comment: - BG improved - Continue glipizide, Lantus (4) CAD (coronary artery disease) Code(s): I25.10 - ATHSCL HEART DISEASE OF [place] CORONARY ARTERY W/O ANG PCTRS Comment: - Continue aspirin, atovastatin, Plavix (5) History of gout Code(s): Z87.39 - PERSONAL HISTORY OF DISEASES OF THE MS SYS AND CONN TISS Comment: - Continue allopurinol (6) CKD (chronic kidney disease), stage III Code(s): N18.3 - CHRONIC KIDNEY DISEASE, STAGE 3 (MODERATE) Comment: - Creatinine at baseline (7) DVT prophylaxis Code(s): Z29.9 - ENCOUNTER FOR PROPHYLACTIC MEASURES, UNSPECIFIED Comment: - Heparin SQ (8) Full code status Code(s): Z78.9 - OTHER SPECIFIED HEALTH STATUS Comment: Status and Disposition: Inpatient pending placement. Attending: Arlet Riojas
[2019-04-07] MEDS: Heparin VIAL(*) 5000 UNITS/ML VIAL (FIVE THOUSAND) SUBCUT SCH ×3 (06:14→21:25)
[2019-04-07] MEDS: Memantine TAB* 10 MG PO SCH ×2 (09:04→20:17)
[2019-04-07] MEDS: Clopidogrel TAB* 75 MG PO SCH (09:04)
[2019-04-07] MEDS: glipiZIDE TAB.XL* 2.5 MG PO SCH (09:04)
[2019-04-07] MEDS: Atorvastatin* 40 MG TAB PO SCH (09:04)
[2019-04-07] MEDS: Allopurinol TAB* 300 MG PO SCH (09:04)
[2019-04-07] MEDS: Aspirin EC TAB* 81 MG TAB.EC PO SCH (09:04)
--- NOTE | 2019-04-07 09:57 | PN ---
Subjective Date of Service: 04/07/19 Interval History: Mr. Zurita is feeling well this morning. He offers no complaints. Slept well overnight. Denies CP, SOB, N/V. Good appetite. No concerns from nursing. Family History: Unchanged from Admission Social History: Unchanged from Admission Past Medical History: Unchanged from Admission Objective Active Medications: Acetaminophen (Tylenol Tab*) 650 mg PO Q4H PRN MILD PAIN or TEMP > 100.4 Allopurinol (Zyloprim Tab*) 300 mg PO DAILY [facility] Aspirin (Aspirin Ec Tab*) 81 mg PO DAILY [facility] Atorvastatin Calcium (Lipitor*) 40 mg PO DAILY [facility] Clopidogrel Bisulfate (Plavix Tab*) 75 mg PO DAILY [facility] Glipizide (Glucotrol Xl*) 2.5 mg PO QAM [facility] Heparin Sodium (Porcine) (Heparin Vial(*)) 5,000 units SUBCUT Q8HR [facility] Insulin Glargine (Lantus(*)) 11 units SUBCUT Q24H [facility] Memantine (Namenda Tab*) 10 mg PO BID [facility] Vital Signs - 8 hr 04/07/19 04/07/19 04/07/19 03:22 07:30 08:00 Temperature 97.5 F 97.9 F Pulse Rate 66 70 Respiratory 18 20 20 Rate Blood Pressure 120/59 143/64 (mmHg) O2 Sat by Pulse 97 99 Oximetry Oxygen Devices in Use Now: None Appearance: Elderly male lying in bed in NAD Ears/Nose/Mouth/Throat: Mucous Membranes Moist Neck: NL Appearance and Movements; NL JVP, Trachea Midline Respiratory: Symmetrical Chest Expansion and Respiratory Effort, Clear to Auscultation Cardiovascular: NL Sounds; No Murmurs; No JVD, RRR Abdominal: NL Sounds; No Tenderness; No Distention Extremities: No Edema Neurological: - - Oriented to self and place Nutrition: Taking PO's Result Diagrams: 04/04/19 07:06 04/04/19 07:06 Assess/Plan/Problems-Billing Assessment: Mr. Zurita is an 88 yo M with PMH of DM2, HTN, HLD, gout, CKD, CAD, Alzheimer' s, carotid artery occlusion, CVA, R eye blindness d/t emboli; who presented to the ED with increasing confusion, likely r/t advancing dementia. - Patient Problems (1) Alzheimer's dementia Code(s): G30.9 - ALZHEIMER'S DISEASE, UNSPECIFIED; F02.80 - DEMENTIA IN OTH DISEASES CLASSD ELSWHR W/O BEHAVRL DISTURB Comment: - Patient's primary caregiver recently hospitalized and now on hospice; timing coincides with decline in mental status, so suspect AMS on admission was d/t advancing dementia - Social Work consulting for placement - Continue Namenda (2) Asymptomatic bacteriuria Code(s): R82.71 - BACTERIURIA Comment: - Urine culture growing <100k colonies Staph epi - Asymptomatic and no s/s of infection - No indication for abx (3) Diabetes mellitus Code(s): E11.9 - TYPE 2 DIABETES MELLITUS WITHOUT COMPLICATIONS Comment: - BG improved - Continue glipizide, Lantus (4) CAD (coronary artery disease) Code(s): I25.10 - ATHSCL HEART DISEASE OF [place] CORONARY ARTERY W/O ANG PCTRS Comment: - Continue aspirin, atovastatin, Plavix (5) History of gout Code(s): Z87.39 - PERSONAL HISTORY OF DISEASES OF THE MS SYS AND CONN TISS Comment: - Continue allopurinol (6) CKD (chronic kidney disease), stage III Code(s): N18.3 - CHRONIC KIDNEY DISEASE, STAGE 3 (MODERATE) Comment: - Creatinine at baseline (7) DVT prophylaxis Code(s): Z29.9 - ENCOUNTER FOR PROPHYLACTIC MEASURES, UNSPECIFIED Comment: - Heparin SQ (8) Full code status Code(s): Z78.9 - OTHER SPECIFIED HEALTH STATUS Comment: Status and Disposition: Inpatient pending placement. Attending: Jan Funk
[2019-04-07] MEDS: Insulin GLARGINE(*) 1 UNITS UNIT SUBCUT SCH (12:05)
[2019-04-08] MEDS: Heparin VIAL(*) 5000 UNITS/ML VIAL (FIVE THOUSAND) SUBCUT SCH ×2 (05:37→14:51)
[2019-04-08] MEDS: Aspirin EC TAB* 81 MG TAB.EC PO SCH (09:00)
[2019-04-08] MEDS: Atorvastatin* 40 MG TAB PO SCH (09:00)
[2019-04-08] MEDS: Allopurinol TAB* 300 MG PO SCH (09:00)
[2019-04-08] MEDS: Clopidogrel TAB* 75 MG PO SCH (09:01)
[2019-04-08] MEDS: Memantine TAB* 10 MG PO SCH ×2 (09:01→19:59)
[2019-04-08] MEDS: glipiZIDE TAB.XL* 2.5 MG PO SCH (09:01)
[2019-04-08] MEDS: Insulin GLARGINE(*) 1 UNITS UNIT SUBCUT SCH (11:13)
--- NOTE | 2019-04-08 13:04 | PN ---
Subjective Date of Service: 04/08/19 Interval History: Mr. Zurita is feeling well today. He offers no complaints. Denies CP, SOB, N/ V. Good appetite. He has been up ambulating. No concerns from nursing. Family History: Unchanged from Admission Social History: Unchanged from Admission Past Medical History: Unchanged from Admission Objective Active Medications: Acetaminophen (Tylenol Tab*) 650 mg PO Q4H PRN MILD PAIN or TEMP > 100.4 Allopurinol (Zyloprim Tab*) 300 mg PO DAILY [facility] Aspirin (Aspirin Ec Tab*) 81 mg PO DAILY [facility] Atorvastatin Calcium (Lipitor*) 40 mg PO DAILY [facility] Clopidogrel Bisulfate (Plavix Tab*) 75 mg PO DAILY [facility] Glipizide (Glucotrol Xl*) 2.5 mg PO QAM [facility] Heparin Sodium (Porcine) (Heparin Vial(*)) 5,000 units SUBCUT Q8HR [facility] Insulin Glargine (Lantus(*)) 11 units SUBCUT Q24H [facility] Memantine (Namenda Tab*) 10 mg PO BID [facility] Vital Signs - 8 hr 04/08/19 04/08/19 04/08/19 07:15 08:00 11:15 Temperature 97.8 F 98.6 F Pulse Rate 84 69 Respiratory 15 18 15 Rate Blood Pressure 92/40 92/46 (mmHg) O2 Sat by Pulse 99 100 Oximetry Oxygen Devices in Use Now: None Appearance: Elderly male sitting in chair in NAD Ears/Nose/Mouth/Throat: Mucous Membranes Moist Neck: NL Appearance and Movements; NL JVP, Trachea Midline Respiratory: Symmetrical Chest Expansion and Respiratory Effort, Clear to Auscultation Cardiovascular: NL Sounds; No Murmurs; No JVD, RRR Abdominal: NL Sounds; No Tenderness; No Distention Extremities: No Edema Neurological: - - Oriented to self and place Nutrition: Taking PO's Result Diagrams: 04/04/19 07:06 04/04/19 07:06 Assess/Plan/Problems-Billing Assessment: Mr. Zurita is an 88 yo M with PMH of DM2, HTN, HLD, gout, CKD, CAD, Alzheimer' s, carotid artery occlusion, CVA, R eye blindness d/t emboli; who presented to the ED with increasing confusion, likely r/t advancing dementia. - Patient Problems (1) Alzheimer's dementia Code(s): G30.9 - ALZHEIMER'S DISEASE, UNSPECIFIED; F02.80 - DEMENTIA IN OTH DISEASES CLASSD ELSWHR W/O BEHAVRL DISTURB Comment: - Patient's primary caregiver recently hospitalized and now on hospice; timing coincides with decline in mental status, so suspect AMS on admission was d/t advancing dementia - Social Work consulting for placement - Continue Namenda (2) Asymptomatic bacteriuria Code(s): R82.71 - BACTERIURIA Comment: - Urine culture growing <100k colonies Staph epi - Asymptomatic and no s/s of infection - No indication for abx (3) Diabetes mellitus Code(s): E11.9 - TYPE 2 DIABETES MELLITUS WITHOUT COMPLICATIONS Comment: - BG improved - Continue glipizide, Lantus (4) CAD (coronary artery disease) Code(s): I25.10 - ATHSCL HEART DISEASE OF [place] CORONARY ARTERY W/O ANG PCTRS Comment: - Continue aspirin, atovastatin, Plavix (5) History of gout Code(s): Z87.39 - PERSONAL HISTORY OF DISEASES OF THE MS SYS AND CONN TISS Comment: - Continue allopurinol (6) CKD (chronic kidney disease), stage III Code(s): N18.3 - CHRONIC KIDNEY DISEASE, STAGE 3 (MODERATE) Comment: - Creatinine at baseline (7) DVT prophylaxis Code(s): Z29.9 - ENCOUNTER FOR PROPHYLACTIC MEASURES, UNSPECIFIED Comment: - Heparin SQ (8) Full code status Code(s): Z78.9 - OTHER SPECIFIED HEALTH STATUS Comment: Status and Disposition: Inpatient pending placement. Attending: Enriqueta Ramirez
[2019-04-08] MEDS ORDERED: Enoxaparin(*) 40 MG/0.4 ML SYR SUBCUT SCH (15:00)
[2019-04-08] MEDS: Enoxaparin(*) 30 MG/0.3 ML SYR SUBCUT SCH (15:28)
[2019-04-09] MEDS: Memantine TAB* 10 MG PO SCH ×2 (08:41→21:23)
[2019-04-09] MEDS: Allopurinol TAB* 300 MG PO SCH (08:41)
[2019-04-09] MEDS: Atorvastatin* 40 MG TAB PO SCH (08:41)
[2019-04-09] MEDS: Aspirin EC TAB* 81 MG TAB.EC PO SCH (08:41)
[2019-04-09] MEDS: Clopidogrel TAB* 75 MG PO SCH (08:41)
[2019-04-09] MEDS: glipiZIDE TAB.XL* 2.5 MG PO SCH (08:41)
[2019-04-09] MEDS ORDERED: Docusate CAP* 100 MG PO PRN (10:27)
[2019-04-09] MEDS ORDERED: Polyethylene Glycol 3350* 17 GM PACKET PO PRN (10:27)
--- NOTE | 2019-04-09 10:35 | PN ---
Subjective Date of Service: 04/09/19 Interval History: patient reports that he is feeling well today. When asked where he is , he reports [place], When asked the year states " I don't know." . Denies chest pain or shortness of breath. Denies abd pain n/v/d. Denies chills. Family History: Unchanged from Admission Social History: Unchanged from Admission Past Medical History: Unchanged from Admission Objective Active Medications: Acetaminophen (Tylenol Tab*) 650 mg PO Q4H PRN PRN Reason: MILD PAIN or TEMP > 100.4 Allopurinol (Zyloprim Tab*) 300 mg PO DAILY [facility] Last Admin: 04/09/19 08:41 Dose: 300 mg Aspirin (Aspirin Ec Tab*) 81 mg PO DAILY [facility] Last Admin: 04/09/19 08:41 Dose: 81 mg Atorvastatin Calcium (Lipitor*) 40 mg PO DAILY [facility] Last Admin: 04/09/19 08:41 Dose: 40 mg Clopidogrel Bisulfate (Plavix Tab*) 75 mg PO DAILY [facility] Last Admin: 04/09/19 08:41 Dose: 75 mg Docusate Sodium (Colace Cap*) 100 mg PO BID PRN PRN Reason: CONSTIPATION Enoxaparin Sodium (Lovenox(*)) 30 mg SUBCUT Q24H [facility] Last Admin: 04/08/19 15:28 Dose: 30 mg Glipizide (Glucotrol Xl*) 2.5 mg PO QAM [facility] Last Admin: 04/09/19 08:41 Dose: 2.5 mg Insulin Glargine (Lantus(*)) 9 units SUBCUT Q24H [facility] Memantine (Namenda Tab*) 10 mg PO BID [facility] Last Admin: 04/09/19 08:41 Dose: 10 mg Polyethylene Glycol/Electrolytes (Miralax*) 17 gm PO DAILY PRN PRN Reason: CONSTIPATION Vital Signs - 8 hr 04/09/19 04/09/19 04/09/19 03:47 07:12 08:00 Temperature 97.9 F 97.7 F Pulse Rate 94 97 Respiratory 17 16 16 Rate Blood Pressure 109/60 108/58 (mmHg) O2 Sat by Pulse 99 100 Oximetry Oxygen Devices in Use Now: None Appearance: alert, confused , no acute distress Eyes: No Scleral Icterus Ears/Nose/Mouth/Throat: Clear Oropharnyx, Mucous Membranes Moist Neck: NL Appearance and Movements; NL JVP, Trachea Midline Respiratory: Symmetrical Chest Expansion and Respiratory Effort, Clear to Auscultation Cardiovascular: NL Sounds; No Murmurs; No JVD, No Edema Abdominal: NL Sounds; No Tenderness; No Distention Extremities: No Edema, No Clubbing, Cyanosis Skin: No Rash or Ulcers Neurological: Alert and Oriented x 3 Nutrition: Taking PO's Result Diagrams: 04/04/19 07:06 04/04/19 07:06 Microbiology and Other Data: Microbiology 04/04/19 00:07 Urine Culture - Final Urine Staphylococcus Epidermidis Assess/Plan/Problems-Billing Assessment: Mr. Zurita is an 88 yo M with PMH of DM2, HTN, HLD, gout, CKD, CAD, Alzheimer' s, carotid artery occlusion, CVA, R eye blindness d/t emboli; who presented to the ED with increasing confusion, likely r/t advancing dementia. - Patient Problems (1) Alzheimer's dementia Current Visit: Yes Status: Acute Code(s): G30.9 - ALZHEIMER'S DISEASE, UNSPECIFIED; F02.80 - DEMENTIA IN OTH DISEASES CLASSD ELSWHR W/O BEHAVRL DISTURB SNOMED Code(s): 77637546 Comment: - Patient's primary caregiver recently hospitalized and now on hospice; timing coincides with decline in mental status, so suspect AMS on admission was d/t advancing dementia - Social Work consulting for placement - Continue Namenda (2) Asymptomatic bacteriuria Current Visit: Yes Status: Acute Code(s): R82.71 - BACTERIURIA SNOMED Code (s): 359783399 Comment: - Urine culture growing 75-100k colonies Staph epi - Asymptomatic and no s/s of infection - will repeat urine (3) History of gout Current Visit: Yes Status: Acute Code(s): Z87.39 - PERSONAL HISTORY OF DISEASES OF THE MS SYS AND CONN TISS SNOMED Code(s): 714718006 Comment: - Continue allopurinol (4) CKD (chronic kidney disease), stage III Current Visit: Yes Status: Acute Code(s): N18.3 - CHRONIC KIDNEY DISEASE, STAGE 3 (MODERATE) SNOMED Code(s): 172543413 Comment: - Creatinine at baseline (5) Diabetes mellitus Current Visit: Yes Status: Acute Code(s): E11.9 - TYPE 2 DIABETES MELLITUS WITHOUT COMPLICATIONS SNOMED Code(s): 76125042 Comment: - BG improved - Continue glipizide, Lantus (6) CAD (coronary artery disease) Current Visit: No Status: Acute Code(s): I25.10 - ATHSCL HEART DISEASE OF [place] CORONARY ARTERY W/O ANG PCTRS SNOMED Code(s): 98063393 Comment: - Continue aspirin, atovastatin, Plavix (7) DVT prophylaxis Current Visit: Yes Status: Acute Code(s): Z29.9 - ENCOUNTER FOR PROPHYLACTIC MEASURES, UNSPECIFIED SNOMED Code(s): 856540535 Comment: - Heparin SQ (8) Full code status Current Visit: Yes Status: Acute Code(s): Z78.9 - OTHER SPECIFIED HEALTH STATUS SNOMED Code(s): 712827826 Comment: Status and Disposition: Inpatient pending placement.
[2019-04-09] MEDS: Insulin GLARGINE(*) 1 UNITS UNIT SUBCUT SCH (12:15)
[2019-04-09] MEDS: Enoxaparin(*) 30 MG/0.3 ML SYR SUBCUT SCH (14:50)
[2019-04-09 21:30] LABS: Urine Appearance Cloudy; Urine Bilirubin Negative (Negative); Urine Blood 2+ (Negative); Urine Color Yellow; Urine Glucose Negative (Negative); Urine Ketones Negative (Negative); Urine Nitrite Negative (Negative); Urine Protein Negative (Negative); Urine Specific Gravity 1.009 (1.010-1.030); Urine Urobilinogen Negative (Negative)
[2019-04-09 21:33] LABS: Urine Bacteria Absent (Absent); Urine Red Blood Cell 1+(3-5/hpf) (Absent); Urine White Blood Cell 3+(>20/hpf) (Absent)
[2019-04-10 05:29] LABS: BUN/Creatinine Ratio 29.4 (8-20); Calcium 8.7 mg/dL (8.6-10.3); EGFR African American 46.3 (>60); EGFR Non-African American 38.2 (>60)
[2019-04-10] MEDS: Clopidogrel TAB* 75 MG PO SCH (09:14)
[2019-04-10] MEDS: Memantine TAB* 10 MG PO SCH ×2 (09:14→19:55)
[2019-04-10] MEDS: Aspirin EC TAB* 81 MG TAB.EC PO SCH (09:14)
[2019-04-10] MEDS: Atorvastatin* 40 MG TAB PO SCH (09:14)
[2019-04-10] MEDS: Allopurinol TAB* 300 MG PO SCH (09:15)
[2019-04-10] MEDS: glipiZIDE TAB.XL* 2.5 MG PO SCH (09:15)
[2019-04-10] MEDS: Insulin GLARGINE(*) 1 UNITS UNIT SUBCUT SCH (11:57)
[2019-04-10] MEDS: Cyanocobalamin TAB* 500 MCG PO SCH (15:43)
[2019-04-10] MEDS: Enoxaparin(*) 30 MG/0.3 ML SYR SUBCUT SCH (15:44)
--- NOTE | 2019-04-10 20:50 | PN ---
Subjective Date of Service: 04/10/19 Interval History: patient reports that he is feeling well . Denies chest pain or shortness of breath. Denies abd pain n/v/d. Patient today reports that he is in the hospital. When asked why he is in the hospital he relies " to eat" with a laugh. Continues to be unable to state date or time. Labs reviewed b 12 171 Family History: Unchanged from Admission Social History: Unchanged from Admission Past Medical History: Unchanged from Admission Objective Active Medications: Acetaminophen (Tylenol Tab*) 650 mg PO Q4H PRN PRN Reason: MILD PAIN or TEMP > 100.4 Allopurinol (Zyloprim Tab*) 300 mg PO DAILY [facility] Last Admin: 04/10/19 09:15 Dose: 300 mg Aspirin (Aspirin Ec Tab*) 81 mg PO DAILY [facility] Last Admin: 04/10/19 09:14 Dose: 81 mg Atorvastatin Calcium (Lipitor*) 40 mg PO DAILY [facility] Last Admin: 04/10/19 09:14 Dose: 40 mg Clopidogrel Bisulfate (Plavix Tab*) 75 mg PO DAILY [facility] Last Admin: 04/10/19 09:14 Dose: 75 mg Cyanocobalamin (Vitamin B12 Tab*) 1,000 mcg PO DAILY [facility] Last Admin: 04/10/19 15:43 Dose: 1,000 mcg Docusate Sodium (Colace Cap*) 100 mg PO BID PRN PRN Reason: CONSTIPATION Last Admin: 04/09/19 11:35 Dose: 100 mg Enoxaparin Sodium (Lovenox(*)) 30 mg SUBCUT Q24H [facility] Last Admin: 04/10/19 15:44 Dose: 30 mg Glipizide (Glucotrol Xl*) 2.5 mg PO QAM [facility] Last Admin: 04/10/19 09:15 Dose: 2.5 mg Insulin Glargine (Lantus(*)) 9 units SUBCUT Q24H [facility] Last Admin: 04/10/19 11:57 Dose: 9 units Memantine (Namenda Tab*) 10 mg PO BID [facility] Last Admin: 04/10/19 19:55 Dose: 10 mg Polyethylene Glycol/Electrolytes (Miralax*) 17 gm PO DAILY PRN PRN Reason: CONSTIPATION Last Admin: 04/09/19 11:35 Dose: 17 gm Vital Signs - 8 hr 04/10/19 15:49 Temperature 97.2 F Pulse Rate 87 Respiratory 20 Rate Blood Pressure 142/70 (mmHg) O2 Sat by Pulse 99 Oximetry Oxygen Devices in Use Now: None Appearance: alert confused oriented to person and place only Eyes: No Scleral Icterus Ears/Nose/Mouth/Throat: Clear Oropharnyx, Mucous Membranes Moist Neck: NL Appearance and Movements; NL JVP, Trachea Midline Respiratory: Symmetrical Chest Expansion and Respiratory Effort, Clear to Auscultation Cardiovascular: NL Sounds; No Murmurs; No JVD, No Edema Abdominal: NL Sounds; No Tenderness; No Distention Extremities: No Edema Skin: No Rash or Ulcers Neurological: NL Sensation, NL Muscle Strength and Tone, - - confused to time and situation, oriented to person and place. Nutrition: Taking PO's Result Diagrams: 04/04/19 07:06 04/10/19 04:29 Microbiology and Other Data: Microbiology 04/04/19 00:07 Urine Culture - Final Urine Staphylococcus Epidermidis Assess/Plan/Problems-Billing Assessment: Mr. Zurita is an 88 yo M with PMH of DM2, HTN, HLD, gout, CKD, CAD, Alzheimer' s, carotid artery occlusion, CVA, R eye blindness d/t emboli; who presented to the ED with increasing confusion, likely r/t advancing dementia. - Patient Problems (1) Alzheimer's dementia Current Visit: Yes Status: Acute Code(s): G30.9 - ALZHEIMER'S DISEASE, UNSPECIFIED; F02.80 - DEMENTIA IN OTH DISEASES CLASSD ELSWHR W/O BEHAVRL DISTURB SNOMED Code(s): 72713051 Comment: - Patient's primary caregiver recently hospitalized and now on hospice; timing coincides with decline in mental status, so suspect AMS on admission was d/t advancing dementia - Social Work consulting for placement - Continue Namenda (2) Asymptomatic bacteriuria Current Visit: Yes Status: Acute Code(s): R82.71 - BACTERIURIA SNOMED Code (s): 348281704 Comment: - Urine culture growing 75-100k colonies Staph epi - Asymptomatic and no s/s of infection - will repeat urine (3) History of gout Current Visit: Yes Status: Acute Code(s): Z87.39 - PERSONAL HISTORY OF DISEASES OF THE MS SYS AND CONN TISS SNOMED Code(s): 057358765 Comment: - Continue allopurinol (4) CKD (chronic kidney disease), stage III Current Visit: Yes Status: Acute Code(s): N18.3 - CHRONIC KIDNEY DISEASE, STAGE 3 (MODERATE) SNOMED Code(s): 809332342 Comment: - Creatinine at baseline (5) Diabetes mellitus Current Visit: Yes Status: Acute Code(s): E11.9 - TYPE 2 DIABETES MELLITUS WITHOUT COMPLICATIONS SNOMED Code(s): 74865357 Comment: - BG improved - Continue glipizide, Lantus (6) CAD (coronary artery disease) Current Visit: No Status: Acute Code(s): I25.10 - ATHSCL HEART DISEASE OF [place] CORONARY ARTERY W/O ANG PCTRS SNOMED Code(s): 33652880 Comment: - Continue aspirin, atovastatin, Plavix (7) DVT prophylaxis Current Visit: Yes Status: Acute Code(s): Z29.9 - ENCOUNTER FOR PROPHYLACTIC MEASURES, UNSPECIFIED SNOMED Code(s): 993217729 Comment: - Heparin SQ (8) Full code status Current Visit: Yes Status: Acute Code(s): Z78.9 - OTHER SPECIFIED HEALTH STATUS SNOMED Code(s): 542029582 Comment: (9) Vitamin B12 deficiency Current Visit: Yes Status: Acute Code(s): E53.8 - DEFICIENCY OF OTHER SPECIFIED B GROUP VITAMINS SNOMED Code(s): 157391748 Comment: will start b 12 1000 mcg daily Status and Disposition: Inpatient pending placement.
[2019-04-11] MEDS: Memantine TAB* 10 MG PO SCH ×2 (09:45→20:08)
[2019-04-11] MEDS: glipiZIDE TAB.XL* 2.5 MG PO SCH (09:45)
[2019-04-11] MEDS: Atorvastatin* 40 MG TAB PO SCH (09:45)
[2019-04-11] MEDS: Aspirin EC TAB* 81 MG TAB.EC PO SCH (09:45)
[2019-04-11] MEDS: Allopurinol TAB* 300 MG PO SCH (09:45)
[2019-04-11] MEDS: Clopidogrel TAB* 75 MG PO SCH (09:45)
[2019-04-11] MEDS: Cyanocobalamin TAB* 500 MCG PO SCH (09:45)
[2019-04-11] MEDS: Insulin GLARGINE(*) 1 UNITS UNIT SUBCUT SCH (12:17)
--- NOTE | 2019-04-11 13:54 | CONSULT ---
Consult Consult: Consult for Medical Decision Making Capacity S: Psychiatry is asked to evaluate capacity in this 88 y.o. single, white male with a history of dementia recently admitted to the Hospitalist service for acute confusion. Prior to admission the patient has been residing for the last two decades in an independent senior-living facility with the assistance of a caregiver, who is not related, named Rosina. The patient's caregiver, who is also his HCP, was recently diagnosed with a terminal illness that requires palliative care. In her absence he has had challenges caring for himself and was hospitalized here after wandering into neighbors' apartments and appearing dishevelled and confused. The primary team is concerned about his ability to continue living independently and is recommending fdc placement. They note that he displays marked cognitive deficits and don't believe that he is able to make such a choice in an informed manner. They note that the risks of going home include inability to meet his most basic needs such as eating, bathing, toileting and grooming. On exam the patient is pleasant but confused. He is unaware of the day, date, month or year and does not know the hospital name, town, county or floor, although he knows we are in [facility]. Regarding this hospital stay, he is unaware of why he needed to come here, saying only "To get something to eat." His mcf[facility] memory is similarly impaired, for example, not knowing the names of his two children. When asked about a chcf he clearly makes his choice of no. "I want to go home." When asked about the risks of doing so, he cannot think of any. When asked more specifically how he will eat, bathe and take care of himself he dismisses this, saying "There are people at [place] that will help me with all that." This clinician later confirmed with the social work service that [place] does not offer that high level of care. O: very pleasant aging white male with graying hair and stylish red-rimmed glasses sitting up in a chair in his room; dressed in patient gown with fair grooming; speech has slow rate with brief, uninformative answers; euthymic mood with full affect; denies SI or HI; insight and judgment poor given insistence on going home without placement; awake and alert; disoriented to place, time and situation A/P: Capacity: During our interaction, Mr. Zurita failed to demonstrate a reasonable understanding of his illness and the events leading to hospitalization. He could not articulate what future treatment course has been recommended by his inpatient providers and, although he could articulate a choice, he could not state any risks of refusing said treatment. In my judgment , he lacks the capacity to make an informed decision about refusing SNF placement. Capacity is subject to change in these situations and psychiatry can be re-consulted in the event of any significant changes in the patient's presentation. I have discussed my opinion with the patient and [address] [place] [address] staff.
[2019-04-11] MEDS: Enoxaparin(*) 30 MG/0.3 ML SYR SUBCUT SCH (15:56)
--- NOTE | 2019-04-11 18:17 | PN ---
Subjective Date of Service: 04/11/19 Interval History: Patient with no complaints, sitting in the chair in his hospital room. Denies chest pain or shortness of breath. Denies abd pain n/v/d. Denies fever or chills. Patient continues to be confused to place, situation and time. Oriented to person only. When asked why he was in the hospital today- he replied " because I can not afford my house" Family History: Unchanged from Admission Social History: Unchanged from Admission Past Medical History: Unchanged from Admission Objective Active Medications: Acetaminophen (Tylenol Tab*) 650 mg PO Q4H PRN PRN Reason: MILD PAIN or TEMP > 100.4 Allopurinol (Zyloprim Tab*) 300 mg PO DAILY [facility] Last Admin: 04/11/19 09:45 Dose: 300 mg Aspirin (Aspirin Ec Tab*) 81 mg PO DAILY [facility] Last Admin: 04/11/19 09:45 Dose: 81 mg Atorvastatin Calcium (Lipitor*) 40 mg PO DAILY [facility] Last Admin: 04/11/19 09:45 Dose: 40 mg Clopidogrel Bisulfate (Plavix Tab*) 75 mg PO DAILY [facility] Last Admin: 04/11/19 09:45 Dose: 75 mg Cyanocobalamin (Vitamin B12 Tab*) 1,000 mcg PO DAILY [facility] Last Admin: 04/11/19 09:45 Dose: 1,000 mcg Docusate Sodium (Colace Cap*) 100 mg PO BID PRN PRN Reason: CONSTIPATION Last Admin: 04/09/19 11:35 Dose: 100 mg Enoxaparin Sodium (Lovenox(*)) 30 mg SUBCUT Q24H [facility] Last Admin: 04/11/19 15:56 Dose: 30 mg Glipizide (Glucotrol Xl*) 2.5 mg PO QAM [facility] Last Admin: 04/11/19 09:45 Dose: 2.5 mg Insulin Glargine (Lantus(*)) 9 units SUBCUT Q24H [facility] Last Admin: 04/11/19 12:17 Dose: 9 units Memantine (Namenda Tab*) 10 mg PO BID [facility] Last Admin: 04/11/19 09:45 Dose: 10 mg Polyethylene Glycol/Electrolytes (Miralax*) 17 gm PO DAILY PRN PRN Reason: CONSTIPATION Last Admin: 04/09/19 11:35 Dose: 17 gm Vital Signs - 8 hr 04/11/19 11:31 Temperature 97.2 F Pulse Rate 76 Respiratory 20 Rate Blood Pressure 100/49 (mmHg) O2 Sat by Pulse 96 Oximetry Oxygen Devices in Use Now: None Appearance: alert , oreiented to self only Eyes: No Scleral Icterus Ears/Nose/Mouth/Throat: Clear Oropharnyx, Mucous Membranes Moist Neck: NL Appearance and Movements; NL JVP, Trachea Midline Respiratory: Symmetrical Chest Expansion and Respiratory Effort, Clear to Auscultation Cardiovascular: NL Sounds; No Murmurs; No JVD, No Edema Abdominal: NL Sounds; No Tenderness; No Distention Extremities: No Edema, No Clubbing, Cyanosis Skin: No Rash or Ulcers Neurological: Alert and Oriented x 3 Result Diagrams: 04/04/19 07:06 04/10/19 04:29 Microbiology and Other Data: Microbiology 04/04/19 00:07 Urine Culture - Final Urine Staphylococcus Epidermidis Assess/Plan/Problems-Billing Assessment: Mr. Zurita is an 88 yo M with PMH of DM2, HTN, HLD, gout, CKD, CAD, Alzheimer' s, carotid artery occlusion, CVA, R eye blindness d/t emboli; who presented to the ED with increasing confusion, likely r/t advancing dementia. - Patient Problems (1) Alzheimer's dementia Current Visit: Yes Status: Acute Code(s): G30.9 - ALZHEIMER'S DISEASE, UNSPECIFIED; F02.80 - DEMENTIA IN OTH DISEASES CLASSD ELSWHR W/O BEHAVRL DISTURB SNOMED Code(s): 37369155 Comment: - Patient's primary caregiver recently hospitalized and now on hospice; timing coincides with decline in mental status, so suspect AMS on admission was d/t advancing dementia - Social Work consulting for placement - Continue Namenda (2) Asymptomatic bacteriuria Current Visit: Yes Status: Acute Code(s): R82.71 - BACTERIURIA SNOMED Code (s): 842760513 Comment: - Urine culture growing 75-100k colonies Staph epi - Asymptomatic and no s/s of infection - will repeat urine- continues to grow staph epi greater than 100K- patient remain asymptomatic - likely a contaminent (3) History of gout Current Visit: Yes Status: Acute Code(s): Z87.39 - PERSONAL HISTORY OF DISEASES OF THE MS SYS AND CONN TISS SNOMED Code(s): 199279697 Comment: - Continue allopurinol (4) CKD (chronic kidney disease), stage III Current Visit: Yes Status: Acute Code(s): N18.3 - CHRONIC KIDNEY DISEASE, STAGE 3 (MODERATE) SNOMED Code(s): 454403284 Comment: - Creatinine at baseline (5) Diabetes mellitus Current Visit: Yes Status: Acute Code(s): E11.9 - TYPE 2 DIABETES MELLITUS WITHOUT COMPLICATIONS SNOMED Code(s): 61024468 Comment: - BG controlled - Continue glipizide, Lantus (6) CAD (coronary artery disease) Current Visit: No Status: Acute Code(s): I25.10 - ATHSCL HEART DISEASE OF [place] CORONARY ARTERY W/O ANG PCTRS SNOMED Code(s): 54554408 Comment: - Continue aspirin, atovastatin, Plavix (7) DVT prophylaxis Current Visit: Yes Status: Acute Code(s): Z29.9 - ENCOUNTER FOR PROPHYLACTIC MEASURES, UNSPECIFIED SNOMED Code(s): 745408852 Comment: - Heparin SQ (8) Vitamin B12 deficiency Current Visit: Yes Status: Acute Code(s): E53.8 - DEFICIENCY OF OTHER SPECIFIED B GROUP VITAMINS SNOMED Code(s): 086337526 Comment: will start b 12 1000 mcg daily (9) Full code status Current Visit: Yes Status: Acute Code(s): Z78.9 - OTHER SPECIFIED HEALTH STATUS SNOMED Code(s): 963242113 Comment: Status and Disposition: Inpatient- medically stable to discharge - pending placement options .
[2019-04-12] MEDS: Memantine TAB* 10 MG PO SCH ×2 (09:44→21:35)
[2019-04-12] MEDS: Aspirin EC TAB* 81 MG TAB.EC PO SCH (09:44)
[2019-04-12] MEDS: Atorvastatin* 40 MG TAB PO SCH (09:44)
[2019-04-12] MEDS: Clopidogrel TAB* 75 MG PO SCH (09:44)
[2019-04-12] MEDS: Allopurinol TAB* 300 MG PO SCH (09:44)
[2019-04-12] MEDS: Cyanocobalamin TAB* 500 MCG PO SCH (09:44)
[2019-04-12] MEDS: glipiZIDE TAB.XL* 2.5 MG PO SCH (09:45)
[2019-04-12] MEDS: Insulin GLARGINE(*) 1 UNITS UNIT SUBCUT SCH (12:11)
--- NOTE | 2019-04-12 15:10 | PN ---
Subjective Date of Service: 04/12/19 Interval History: patient seen and evaluated at the bedside. No acute distress. Denies chest pain or shortness of breath. Denies abd pain, n/v/d. denies fever or chills Seen by Psych yesterday - deemed not to have capacity Family History: Unchanged from Admission Social History: Unchanged from Admission Past Medical History: Unchanged from Admission Objective Active Medications: Acetaminophen (Tylenol Tab*) 650 mg PO Q4H PRN PRN Reason: MILD PAIN or TEMP > 100.4 Allopurinol (Zyloprim Tab*) 300 mg PO DAILY [facility] Last Admin: 04/12/19 09:44 Dose: 300 mg Aspirin (Aspirin Ec Tab*) 81 mg PO DAILY [facility] Last Admin: 04/12/19 09:44 Dose: 81 mg Atorvastatin Calcium (Lipitor*) 40 mg PO DAILY [facility] Last Admin: 04/12/19 09:44 Dose: 40 mg Clopidogrel Bisulfate (Plavix Tab*) 75 mg PO DAILY [facility] Last Admin: 04/12/19 09:44 Dose: 75 mg Cyanocobalamin (Vitamin B12 Tab*) 1,000 mcg PO DAILY [facility] Last Admin: 04/12/19 09:44 Dose: 1,000 mcg Docusate Sodium (Colace Cap*) 100 mg PO BID PRN PRN Reason: CONSTIPATION Last Admin: 04/09/19 11:35 Dose: 100 mg Enoxaparin Sodium (Lovenox(*)) 30 mg SUBCUT Q24H [facility] Last Admin: 04/11/19 15:56 Dose: 30 mg Glipizide (Glucotrol Xl*) 2.5 mg PO QAM [facility] Last Admin: 04/12/19 09:45 Dose: 2.5 mg Insulin Glargine (Lantus(*)) 6 units SUBCUT Q24H [facility] Last Admin: 04/12/19 12:11 Dose: 6 units Memantine (Namenda Tab*) 10 mg PO BID [facility] Last Admin: 04/12/19 09:44 Dose: 10 mg Polyethylene Glycol/Electrolytes (Miralax*) 17 gm PO DAILY PRN PRN Reason: CONSTIPATION Last Admin: 04/09/19 11:35 Dose: 17 gm Vital Signs - 8 hr 04/12/19 04/12/19 08:00 08:50 Temperature 97.4 F Pulse Rate 94 Respiratory 18 18 Rate Blood Pressure 129/68 (mmHg) O2 Sat by Pulse 100 Oximetry Oxygen Devices in Use Now: None Appearance: appears comfortable , sitting in the chair , confused to situation and time. oriented to place and person. Eyes: No Scleral Icterus Ears/Nose/Mouth/Throat: Clear Oropharnyx, Mucous Membranes Moist Neck: NL Appearance and Movements; NL JVP, Trachea Midline Respiratory: Symmetrical Chest Expansion and Respiratory Effort, Clear to Auscultation Cardiovascular: NL Sounds; No Murmurs; No JVD, No Edema Abdominal: NL Sounds; No Tenderness; No Distention Extremities: No Edema, No Clubbing, Cyanosis Skin: No Rash or Ulcers Neurological: Alert and Oriented x 3 Nutrition: Taking PO's Result Diagrams: 04/04/19 07:06 04/10/19 04:29 Microbiology and Other Data: Microbiology 04/04/19 00:07 Urine Culture - Final Urine Staphylococcus Epidermidis Assess/Plan/Problems-Billing Assessment: Mr. Zurita is an 88 yo M with PMH of DM2, HTN, HLD, gout, CKD, CAD, Alzheimer' s, carotid artery occlusion, CVA, R eye blindness d/t emboli; who presented to the ED with increasing confusion, likely r/t advancing dementia. - Patient Problems (1) Alzheimer's dementia Current Visit: Yes Status: Acute Code(s): G30.9 - ALZHEIMER'S DISEASE, UNSPECIFIED; F02.80 - DEMENTIA IN OTH DISEASES CLASSD ELSWHR W/O BEHAVRL DISTURB SNOMED Code(s): 26444520 Comment: - Patient's primary caregiver recently hospitalized and now on hospice; timing coincides with decline in mental status, so suspect AMS on admission was d/t advancing dementia - Social Work consulting for placement - Continue Namenda (2) Asymptomatic bacteriuria Current Visit: Yes Status: Acute Code(s): R82.71 - BACTERIURIA SNOMED Code (s): 069761558 Comment: - Urine culture growing 75-100k colonies Staph epi - Asymptomatic and no s/s of infection - will repeat urine- continues to grow staph epi greater than 100K- patient remain asymptomatic - likely a contaminant - will continue to monitor (3) History of gout Current Visit: Yes Status: Acute Code(s): Z87.39 - PERSONAL HISTORY OF DISEASES OF THE MS SYS AND CONN TISS SNOMED Code(s): 018813245 Comment: - Continue allopurinol (4) CKD (chronic kidney disease), stage III Current Visit: Yes Status: Acute Code(s): N18.3 - CHRONIC KIDNEY DISEASE, STAGE 3 (MODERATE) SNOMED Code(s): 569462436 Comment: - Creatinine at baseline (5) Diabetes mellitus Current Visit: Yes Status: Acute Code(s): E11.9 - TYPE 2 DIABETES MELLITUS WITHOUT COMPLICATIONS SNOMED Code(s): 78393503 Comment: - BG controlled - Continue glipizide, Lantus (6) CAD (coronary artery disease) Current Visit: No Status: Acute Code(s): I25.10 - ATHSCL HEART DISEASE OF [place] CORONARY ARTERY W/O ANG PCTRS SNOMED Code(s): 28659115 Comment: - Continue aspirin, atovastatin, Plavix (7) Vitamin B12 deficiency Current Visit: Yes Status: Acute Code(s): E53.8 - DEFICIENCY OF OTHER SPECIFIED B GROUP VITAMINS SNOMED Code(s): 722133396 Comment: conitnue b 12 1000 mcg daily (8) DVT prophylaxis Current Visit: Yes Status: Acute Code(s): Z29.9 - ENCOUNTER FOR PROPHYLACTIC MEASURES, UNSPECIFIED SNOMED Code(s): 938045174 Comment: - Heparin SQ (9) Full code status Current Visit: Yes Status: Acute Code(s): Z78.9 - OTHER SPECIFIED HEALTH STATUS SNOMED Code(s): 834625578 Comment: Status and Disposition: Inpatient- medically stable to discharge - pending placement options .
[2019-04-12] MEDS: Enoxaparin(*) 30 MG/0.3 ML SYR SUBCUT SCH (16:07)
[2019-04-13] MEDS: Aspirin EC TAB* 81 MG TAB.EC PO SCH (09:52)
[2019-04-13] MEDS: Cyanocobalamin TAB* 500 MCG PO SCH (09:52)
[2019-04-13] MEDS: Clopidogrel TAB* 75 MG PO SCH (09:52)
[2019-04-13] MEDS: Allopurinol TAB* 300 MG PO SCH (09:52)
[2019-04-13] MEDS: Atorvastatin* 40 MG TAB PO SCH (09:53)
[2019-04-13] MEDS: Memantine TAB* 10 MG PO SCH ×2 (09:53→20:09)
[2019-04-13] MEDS: Insulin GLARGINE(*) 1 UNITS UNIT SUBCUT SCH (09:53)
[2019-04-13] MEDS: glipiZIDE TAB.XL* 2.5 MG PO SCH (09:53)
--- NOTE | 2019-04-13 12:15 | PN ---
Hospitalist Progress Note Date of Service: 04/13/19 Discussed with Case management. Is currently long term care.Placement pending. No active issues today
[2019-04-13] MEDS: Enoxaparin(*) 30 MG/0.3 ML SYR SUBCUT SCH (17:08)
[2019-04-14] MEDS: Memantine TAB* 10 MG PO SCH ×2 (08:47→22:09)
[2019-04-14] MEDS: glipiZIDE TAB.XL* 2.5 MG PO SCH (08:47)
[2019-04-14] MEDS: Clopidogrel TAB* 75 MG PO SCH (08:47)
[2019-04-14] MEDS: Cyanocobalamin TAB* 500 MCG PO SCH (08:47)
[2019-04-14] MEDS: Aspirin EC TAB* 81 MG TAB.EC PO SCH (08:47)
[2019-04-14] MEDS: Allopurinol TAB* 300 MG PO SCH (08:47)
[2019-04-14] MEDS: Atorvastatin* 40 MG TAB PO SCH (08:47)
[2019-04-14] MEDS: Insulin GLARGINE(*) 1 UNITS UNIT SUBCUT SCH (12:48)
[2019-04-14] MEDS: Enoxaparin(*) 30 MG/0.3 ML SYR SUBCUT SCH (19:11)
[2019-04-15] MEDS: Enoxaparin(*) 30 MG/0.3 ML SYR SUBCUT SCH ×2 (09:25→09:26)
[2019-04-15] MEDS: Cyanocobalamin TAB* 500 MCG PO SCH (09:27)
[2019-04-15] MEDS: Clopidogrel TAB* 75 MG PO SCH (09:27)
[2019-04-15] MEDS: Atorvastatin* 40 MG TAB PO SCH (09:27)
[2019-04-15] MEDS: Memantine TAB* 10 MG PO SCH ×2 (09:27→19:30)
[2019-04-15] MEDS: Allopurinol TAB* 300 MG PO SCH (09:27)
[2019-04-15] MEDS: Aspirin EC TAB* 81 MG TAB.EC PO SCH (09:27)
[2019-04-15] MEDS: glipiZIDE TAB.XL* 2.5 MG PO SCH (09:28)
[2019-04-15] MEDS: Insulin GLARGINE(*) 1 UNITS UNIT SUBCUT SCH (10:45)
[2019-04-16 05:33] LABS: Platelet Count 228 10^3/uL (150-450)
[2019-04-16] MEDS: Atorvastatin* 40 MG TAB PO SCH (09:00)
[2019-04-16] MEDS: Cyanocobalamin TAB* 500 MCG PO SCH (09:00)
[2019-04-16] MEDS: Aspirin EC TAB* 81 MG TAB.EC PO SCH (09:00)
[2019-04-16] MEDS: Clopidogrel TAB* 75 MG PO SCH (09:01)
[2019-04-16] MEDS: glipiZIDE TAB.XL* 2.5 MG PO SCH (09:01)
[2019-04-16] MEDS: Enoxaparin(*) 30 MG/0.3 ML SYR SUBCUT SCH (09:01)
[2019-04-16] MEDS: Insulin GLARGINE(*) 1 UNITS UNIT SUBCUT SCH (09:01)
[2019-04-16] MEDS: Memantine TAB* 10 MG PO SCH ×2 (09:01→21:55)
[2019-04-16] MEDS: Allopurinol TAB* 300 MG PO SCH (09:01)
[2019-04-17] MEDS: Allopurinol TAB* 300 MG PO SCH (09:09)
[2019-04-17] MEDS: Atorvastatin* 40 MG TAB PO SCH (09:09)
[2019-04-17] MEDS: Memantine TAB* 10 MG PO SCH ×2 (09:09→21:31)
[2019-04-17] MEDS: Aspirin EC TAB* 81 MG TAB.EC PO SCH (09:09)
[2019-04-17] MEDS: glipiZIDE TAB.XL* 2.5 MG PO SCH (09:09)
[2019-04-17] MEDS: Cyanocobalamin TAB* 500 MCG PO SCH (09:09)
[2019-04-17] MEDS: Clopidogrel TAB* 75 MG PO SCH (09:09)
[2019-04-17] MEDS: Insulin GLARGINE(*) 1 UNITS UNIT SUBCUT SCH (09:10)
[2019-04-17] MEDS: Enoxaparin(*) 30 MG/0.3 ML SYR SUBCUT SCH (09:10)
[2019-04-18 07:43] VITALS: BP 116/49
[2019-04-18] MEDS: Allopurinol TAB* 300 MG PO SCH (08:46)
[2019-04-18] MEDS: Atorvastatin* 40 MG TAB PO SCH (08:46)
[2019-04-18] MEDS: glipiZIDE TAB.XL* 2.5 MG PO SCH (08:46)
[2019-04-18] MEDS: Memantine TAB* 10 MG PO SCH (08:46)
[2019-04-18] MEDS: Clopidogrel TAB* 75 MG PO SCH (08:46)
[2019-04-18] MEDS: Aspirin EC TAB* 81 MG TAB.EC PO SCH (08:46)
[2019-04-18] MEDS: Cyanocobalamin TAB* 500 MCG PO SCH (08:46)
[2019-04-18] MEDS: Insulin GLARGINE(*) 1 UNITS UNIT SUBCUT SCH (08:47)
[2019-04-18] MEDS: Enoxaparin(*) 30 MG/0.3 ML SYR SUBCUT SCH (08:47)
--- NOTE | 2019-04-18 13:02 | DS ---
CC: Sriram Baer MD * DISCHARGE SUMMARY: DATE OF ADMISSION: 04/03/19 DATE OF DISCHARGE: 04/18/19 PRIMARY CARE PROVIDER: Sriram Baer MD. ATTENDING PHYSICIAN: Yulisa Burden DO * (dictated by BALDO Sandoval) DISCHARGE DIAGNOSES: 1. Altered mental status, likely secondary to advancing dementia. 2. Asymptomatic bacteriuria. SECONDARY DIAGNOSES: 1. Diabetes mellitus type 2. 2. Hypertension. 3. Hyperlipidemia. 4. Coronary artery disease. 5. Chronic kidney disease. 6. Gout. DISCHARGE MEDICATIONS: Home medications: 1. Allopurinol 300 mg p.o. daily. 2. Aspirin 81 mg p.o. daily. 3. Atorvastatin 40 mg p.o. daily. 4. Clopidogrel 75 mg p.o. daily. 5. Glipizide 2.5 mg p.o. daily. 6. Memantine 10 mg p.o. b.i.d. New home medications: 1. Cyanocobalamin 1000 mcg p.o. daily. 2. Docusate 100 mg p.o. b.i.d. p.r.n. 3. Polyethylene glycol 17 g p.o. daily p.r.n. 4. Insulin glargine 6 units subcu q.a.m. STUDIES WHILE IN THE HOSPITAL: Chest x-ray, impression: Right apical pleural thickening, new from 04/13/15. Recommend consideration of further evaluation with CT of the chest in the nonacute setting. HISTORY OF PRESENT ILLNESS/HOSPITAL COURSE: Mr. Zurita is an 88-year-old male with a past medical history of diabetes mellitus type 2, hypertension, hyperlipidemia, coronary artery disease, and renal disease, who presented to the ER on 04/03/19 with reports of confusion, decreased p.o. intake, medication noncompliance, and inability to care for himself. He presented from [facility]. For full and complete details, please see the history and physical dictated by Dr. Claudia Wang on 04/03/19, but in short, the patient presents to the ER with the above symptoms. He was admitted to the hospital. Suspicion for infection was low as the patient was afebrile without leukocytosis or CRP elevation. His blood glucose was 234 upon arrival. Urinalysis was negative. Chest x-ray was unremarkable except for apical thickening recommending outpatient chest CT, but no acute findings. The suspected cause of the patient's decline is that his primary caregiver, who was responsible for the patient's finances, meals, medications, and ADLs, was recently placed on hospice and was no longer able to care for him. This timing coincides with his decline and is the suspected cause. Social Work was consulted and placement was sought for the patient. [facility] has accepted the patient for admission and he is agreeable to placement there. The patient's blood glucose was monitored throughout the stay. He is noted to have some episodes of hyperglycemia and was therefore started on a low dose of Lantus, which was continued throughout his stay with good results. His glucose levels at discharge are between 120 and 140. He should be continued on Lantus 6 units subcu daily as well as his glipizide. At admission, the patient was noted to have a negative UA. A repeat UA was obtained approximately 5 days later and showed 3+ LE, negative nitrites, negative bacteria. Urine culture for both urinalyses show Staph epidermidis. The patient is asymptomatic throughout his stay. Denied dysuria, frequency, urgency, retention or hematuria. Therefore, treatment was not indicated. At the time of discharge, the patient is stable for discharge. He has no complaints. He states he is eating and drinking well. He is agreeable to discharge to [facility], although he does appear to be mildly confused , for instance he notes he is in the hospital at one point during our interview , but then forgets later on. REVIEW OF SYSTEMS: A 14-point review of systems has been performed and all the pertinent positives and negatives are in the HPI. All other systems are negative. PHYSICAL EXAMINATION: General: Mr. Zurita is a well-developed, well- nourished, slightly underweight, elderly white male, who is sitting up in bed. He appears frail. He is pleasant and cooperative, and appears to be in no acute distress. HEENT: PERRL, EOMI. Visual cuellar grossly intact. Sclerae is nonicteric without injection. Hearing is grossly intact. Oral mucous membranes are moist. There are no lesions. The pharynx is clear. The tongue is at midline and the palate elevates symmetrically. Cardiovascular: Regular rate and rhythm with S1, S2 present. There is a systolic murmur. No rubs, clicks, or gallops. There is no JVD or peripheral edema. Pulmonary: Symmetrical chest expansion without use of accessory muscles. Clear to auscultation bilaterally without rhonchi, wheeze, or rales. Abdomen: Obese. Bowel sounds in all quadrants. Soft, nontender to palpation. Musculoskeletal: Strength is 5/5 bilaterally in upper and lower extremities. Neuro: The patient is awake. He is alert; and oriented x2, person and place, unaware of date. Cranial nerves II through XII are grossly intact. His motor strength is 5/5 bilaterally in upper and lower extremities. DISCHARGE PLAN: Mr. Zurita will be discharged to [facility]. CONDITION: Good. DIET: 1. Heart Healthy. 2. ADA/diabetic. ACTIVITY: As tolerated. EDUCATION: 1. Continue blood glucose monitoring. 2. Follow up with primary care provider or [facility] provider within 1 to 5 days. Discuss chest x-ray findings and need for outpatient chest CT. 3. Return to the ER or nearest hospital if you experience any return or worsening of symptoms, chest pain or discomfort, shortness of breath, dizziness , lightheadedness, loss of consciousness, high fevers, chills, night sweats or any other worrisome signs or symptoms. This is a summarized report of a complex medical history and hospital stay. For further details, please see the entire medical record. TIME SPENT: Approximately 30 minutes was spent on this discharge, greater than half that time was spent [id number] with the patient discussing discharge plans and instructions. BALDO SMITH [id number]/[facility] #: [id number] VIANEY
== END 2019-04-18 13:40 | DRG 57 ==
LOC: ED 16:12 → MED 20:04 → OBSVTOIN 04-04 09:38
PROVIDERS: ADMIT Nurse Practitioner; ATTEND Internal Medicine
DX: G30.9 Alzheimer's disease, unspecified (principal); F02.80 Dementia in other diseases classified elsewhere, unspecified severity, without behavioral disturbance, psychotic disturbance, mood disturbance, and anxiety; I25.10 Atherosclerotic heart disease of native coronary artery without angina pectoris; M10.9 Gout, unspecified; N18.3 Chronic kidney disease, stage 3 (moderate); E11.22 Type 2 diabetes mellitus with diabetic chronic kidney disease; I12.9 Hypertensive chronic kidney disease with stage 1 through stage 4 chronic kidney disease, or unspecified chronic kidney disease; E78.5 Hyperlipidemia, unspecified; H54.61 Unqualified visual loss, right eye, normal vision left eye; E11.65 Type 2 diabetes mellitus with hyperglycemia; R82.71 Bacteriuria; E53.8 Deficiency of other specified B group vitamins; Z95.1 Presence of aortocoronary bypass graft; Z98.1 Arthrodesis status; Z28.21 Immunization not carried out because of patient refusal; Z86.73 Personal history of transient ischemic attack (TIA), and cerebral infarction without residual deficits; Z87.440 Personal history of urinary (tract) infections; Z85.038 Personal history of other malignant neoplasm of large intestine; Z85.028 Personal history of other malignant neoplasm of stomach; Z79.82 Long term (current) use of aspirin; Z79.02 Long term (current) use of antithrombotics/antiplatelets; Z79.84 Long term (current) use of oral hypoglycemic drugs
CPT/HCPCS: 36415; 71045; 80048; 80053; 81003; 81015; 82607; 83880; 85025; 85049; 85610; 86140; 87077; 87086; 87186; 93005; 99284; A9270-GY; G0378; J1644; J1650